=== PATIENT | male | born 1975 | race Two or more races ===

== ENCOUNTER 2020-05-25 20:49 | Emergency (ER) | payer BC, SELFPAY ==
--- NOTE | 2020-05-25 23:18 | ED.SKABFB ---
HPI - Skin/Abscess/Foreign Bdy General Chief complaint: Back Pain/Injury Stated complaint: lower back pain Time Seen by Provider: 05/25/20 23:57 Source: patient Mode of arrival: ambulatory Limitations: no limitations History of Present Illness HPI narrative: 44-year-old male with no significant past medical history presents with lower lumbar strain after moving heavy boxes. Does not report any symptoms indicating cauda equina, has no difficulty with sensation, and has full range of motion. Patient states the muscular strain is cramping and twisting and feels that it is similar to past muscular strains. He does not report fevers, chills, chest pain or pressure, palpitations, diaphoresis, abdominal pain, abdominal distention, dysuria, hematuria, bowel or bladder incontinence, loss of balance, or decreased sensation. Related Data Previous Rx's Medication Instructions Recorded cyclobenzaprine 10 mg PO TID PRN #20 tab 05/26/20 diazepam [Valium] 5 mg PO BEDTIME PRN #7 tab 05/26/20 Allergies Allergy/AdvReac Type Severity Reaction Status Date / Time penicillin V Allergy Unknown Unknown Verified 05/25/20 23:19 Penicillins [PENICILLINS] Allergy Unknown UNKNOWN Verified 05/25/20 23:19 Review of Systems Review of Systems: Constitutional: No Fever, No Chills ENT/Mouth: No Ear Pain, No Hoarseness, No sore throat Eyes: No Eye Pain, No Swelling, No Redness, No Foreign Body Cardiovascular: No Chest Pain, No SOB Respiratory: No Cough, No Dyspnea Gastrointestinal: No Nausea, No Vomiting, No Diarrhea, No abdominal Pain Genitourinary: No Dysuria, No Hematuria Musculoskeletal: positive lower back pain, No Myalgias, No Joint Swelling Skin: No Skin lacerations, No rash Neuro: No Weakness, No Numbness, No Paresthesias, No Loss of Consciousness, No Dizziness, No Headache Psych: No Anxiety/Panic, No Depression Heme/Lymph: no easy bruising, no Lymphadenopathy Endocrine: No Polyuria, No Polydipsia Yes all other systems are reviewed and are negative [facility] Past Medical History Attestation statement: The following information was validated with the patient. Medical History (Updated 05/26/20 @ 00:53 by Justyna Blanc NP) Back pain Surgical History Hx of cholecystectomy Social History Social History Smoking Status: Never smoker Use of substances other than those prescribed or required for medical reasons: No Advance Directives: No Physical Exam Vital Signs: Vital Signs: Last Vital Signs Temp 99.0 F 05/25/20 23:19 Pulse 91 05/25/20 23:19 Resp 17 05/25/20 23:19 BP 147/94 H 05/25/20 23:19 Pulse Ox 99 05/25/20 23:19 Body Mass Index 41.8 Appearance: Alert. Oriented X3. Moderate distress. Eyes: Pupils equal, round and reactive to light. EOMI, sclera nonicteric ENT: Pharynx normal. Neck: Normal inspection. Neck supple. CVS: Normal heart rate and rhythm. Pulses normal. Respiratory: No respiratory distress. Lung sounds clear to auscultation all lobes Abdomen: Soft and nontender. Skin: Skin warm and dry. Normal skin color. Normal skin turgor. Extremities: No vertebral tenderness noted to surgical, thoracic, or lumbar spine, pain noted bilaterally to lower lumbar musculature, moves all extremities against resistance, strength 5/5. Neuro: No motor deficit. No sensory deficit. Cranial nerves 2-12 intact, gait well balanced well coordinated although awkward secondary pain. Course Course Course Narrative: 44-year-old male presents with lower back pain after moving heavy boxes. Patient does not have vertebral tenderness or step-offs, does have full range of motion although painful, palpable muscle spasms noted to the lower back. He does not report any indication of cauda equina, has not lost continence of bowel or bladder. Plan of care is for muscle relaxer, Toradol, and Valium to help with reducing muscular spasms. Patient verbalized understanding of and agrees to plan of care discharge home. MDM - Skin/Abscess/Foreign Bdy MDM Narrative Medical decision making narrative: Muscular spasms and strain, lumbar strain Medical Records Attestation: I reviewed the patient's medical records. Lab Data Attestation: I reviewed the patient's lab results. Discharge Plan Discharge Clinical Impression: Lumbar radiculopathy Strain of lumbar region Qualifiers: Encounter type: initial encounter Qualified Code(s): S39.012A - Strain of muscle, fascia and tendon of lower back, initial encounter Patient Disposition: Home, Self-Care Instructions: Acute Low Back Pain (ED) Additional Instructions: You were evaluated for lower back strain. We provided you with a prescription for cyclobenzaprine and Valium. Do not drive operate machinery while taking these medications. These medications may delay reaction time, increased risk for falls and drowsiness. Do not drink alcohol with these medications. Thank you for choosing this emergency department for evaluation. Please follow-up with primary care physician as needed. Return to the emergency department for any new, concerning, or worsening symptoms. Prescriptions: New diazepam [Valium] 5 mg tablet 5 mg PO BEDTIME PRN (Reason: muscle spasm) Qty: 7 RF: 0 cyclobenzaprine 10 mg tablet 10 mg PO TID PRN (Reason: muscle spasm) Qty: 20 RF: 0 Stand Alone Forms: Work/School Release
[2020-05-25 23:19] VITALS: BP 147/94; PULSE 91; RESP 17; TEMP 37.2; O2SAT 99; BMI 41.8
[2020-05-26] MEDS: diazePAM 2 MG TABLET PO (00:13)
[2020-05-26] MEDS: Ketorolac Tromethamine 60 MG/2 ML VIAL IM (00:13)
[2020-05-26] MEDS: Lidocaine 4 % Patch ADH..PATCH 2 PATCH TRANSDERMA (00:13)
[2020-05-26 00:53] VITALS: BP 133/82; PULSE 88; RESP 16; O2SAT 97
== END 2020-05-26 01:00 | disposition home or self-care (01) ==
PROVIDERS: Emergency Provider Emergency Medicine Emergency Medical Services
DX: S39.012A Strain of muscle, fascia and tendon of lower back, initial encounter (principal); M54.16 Radiculopathy, lumbar region; X58.XXXA Exposure to other specified factors, initial encounter; Y93.9 Activity, unspecified; Y92.9 Unspecified place or not applicable; Y99.9 Unspecified external cause status; Z79.899 Other long term (current) drug therapy
CPT/HCPCS: 96372; 99284; J1885

== ENCOUNTER 2020-08-22 12:43 | Emergency (ER) | payer BC, MEDICAID, SELFPAY ==
--- NOTE | ~2020-08-22 | US_ITS ---
EXAMINATION: US SCROTUM CLINICAL INFORMATION: Pain, history of torsion. COMPARISON: None TECHNIQUE: A sonogram of the scrotum was performed assessing barrett-scale appearance and color Doppler flow. Spectral Doppler analysis of the arterial and venous flow were performed in the testes bilaterally. FINDINGS: RIGHT: Right testicle measures 4.3 x 2.3 x 3.1 cm, volume 16.8 mL. There is solitary cyst measuring 0.4 cm. No solid lesions seen. Spectral Doppler analysis of the arterial and venous flow is normal in the right testis. Right epididymal head is normal in size. No right hydrocele or varicocele is seen. Right epididymal Doppler flow is normal. LEFT: Left testicle measures 3.8 x 2.3 x 2.4 cm, volume 10.9 mL. There are several anechoic cysts seen measuring 0.3 x 0.2 cm, 0.3 x 0.3 cm and 0.2 x 0.2 cm. No solid parenchymal lesions are visualized. There is a nonspecific echogenic calcification. Spectral Doppler analysis of the arterial and venous flow is normal in the left testis. Incidental finding of a left appendix testes noted. Left epididymal head is normal in size. There is small to moderate left hydrocele. No Varicocele is seen. Left epididymal Doppler flow is normal except for slight increased flow in the tail likely epididymitis. US/US scrotum IMPRESSION: Bilateral epidural cyst more in number of the left testes. Normal Doppler flow seen to both testes. Left appendix testes and small left hydrocele. Slight increased flow to left epididymal tail question focal epididymitis.
--- NOTE | ~2020-08-22 | US_ITS ---
EXAMINATION: US SCROTUM CLINICAL INFORMATION: Pain, history of torsion. COMPARISON: None TECHNIQUE: A sonogram of the scrotum was performed assessing barrett-scale appearance and color Doppler flow. Spectral Doppler analysis of the arterial and venous flow were performed in the testes bilaterally. FINDINGS: RIGHT: Right testicle measures 4.3 x 2.3 x 3.1 cm, volume 16.8 mL. There is solitary cyst measuring 0.4 cm. No solid lesions seen. Spectral Doppler analysis of the arterial and venous flow is normal in the right testis. Right epididymal head is normal in size. No right hydrocele or varicocele is seen. Right epididymal Doppler flow is normal. LEFT: Left testicle measures 3.8 x 2.3 x 2.4 cm, volume 10.9 mL. There are several anechoic cysts seen measuring 0.3 x 0.2 cm, 0.3 x 0.3 cm and 0.2 x 0.2 cm. No solid parenchymal lesions are visualized. There is a nonspecific echogenic calcification. Spectral Doppler analysis of the arterial and venous flow is normal in the left testis. Incidental finding of a left appendix testes noted. Left epididymal head is normal in size. There is small to moderate left hydrocele. No Varicocele is seen. Left epididymal Doppler flow is normal except for slight increased flow in the tail likely epididymitis. US/US scrotum doppler IMPRESSION: Bilateral epidural cyst more in number of the left testes. Normal Doppler flow seen to both testes. Left appendix testes and small left hydrocele. Slight increased flow to left epididymal tail question focal epididymitis.
[2020-08-22 12:57] VITALS: BP 161/85; PULSE 70; RESP 18; TEMP 36.7; O2SAT 97; BMI 40.4
--- NOTE | 2020-08-22 13:13 | ED.GENADULT ---
HPI - General Adult General Chief complaint: General Medical Stated complaint: TESTICLE PAIN Time Seen by Provider: 08/22/20 13:09 Source: patient Mode of arrival: ambulatory Limitations: no limitations History of Present Illness HPI narrative: 45 y/o male with history of testicular torsion at age 17 presents to the ER from home c/o 24 hours of 8/10 testicular pain. He reports waking up with the pain yesterday. It feels like someone kicked him and the pain is not subsiding. No history of trauma, no sexual activity in 1 week. No urinary symptoms, fevers, N/V. He states the pain worsened today and he noticed his scrotum with a bluish discoloration. He reports the pain radiates up into his abdomen at times. He has not taken anything for the pain. It is worse on the right than the left but involves his entire scrotum. MD complaint: testicular pain Onset (ago): day(s) (1) Location: genitals Radiation: abdomen Severity: severe Severity scale (1-10): 8 Quality: aching Pain Consistency: constant Relieving factors: none Exacerbating factors: movement Associated symptoms: denies other symptoms Treatments prior to arrival: none Related Data Previous Rx's Medication Instructions Recorded cyclobenzaprine 10 mg PO TID PRN #20 tab 05/26/20 diazepam [Valium] 5 mg PO BEDTIME PRN #7 tab 05/26/20 hydrocodone-acetaminophen 1 tab PO Q6H PRN #7 tab 08/22/20 ibuprofen 800 mg PO Q8H PRN #15 tab 08/22/20 levofloxacin 500 mg PO Q24H 10 Days #10 tab 08/22/20 Allergies Allergy/AdvReac Type Severity Reaction Status Date / Time penicillin V Allergy Unknown Unknown Verified 05/25/20 23:19 Penicillins [PENICILLINS] Allergy Unknown UNKNOWN Verified 05/25/20 23:19 Review of Systems Review of Systems: Constitutional: No Fever, No Chills Eyes: No Eye Pain, No Swelling, No Redness Cardiovascular: No Chest Pain, No SOB, No Orthopnea, No Edema Respiratory: No Cough, No Sputum, No Wheezing, No dyspnea Gastrointestinal: No Nausea, No Vomiting, No Diarrhea, No abdominal Pain Genitourinary: No Dysuria, No Urinary Frequency, No Hematuria, +testicular pain Musculoskeletal: No joint pain, No Myalgias Skin: No Skin Lesions, No rash Neuro: No Weakness, No Numbness, No Dizziness, No Headache Psych: No Anxiety/Panic, No Depression Heme/Lymph: No Bruising, No Lymphadenopathy Endocrine: No Polyuria, No Polydipsia PMFSH Past Medical History Attestation statement: The following information was validated with the patient. Medical History Back pain Surgical History Hx of cholecystectomy Social History Social History Alcohol intake: current Alcohol intake frequency: a few times a month Patient Tobacco Use Status: Never used Tobacco Use of substances other than those prescribed or required for medical reasons: No Advance Directives: No Advance Directives Information Provided: No Physical Exam Vital Signs: Vital Signs: Last Vital Signs Temp 98.1 F 08/22/20 12:57 Pulse 61 08/22/20 14:17 Resp 16 08/22/20 14:17 BP 125/78 08/22/20 14:17 Pulse Ox 98 08/22/20 14:17 Body Mass Index 40.4 Appearance: Alert. Oriented X3. No acute distress. Eyes: Pupils equal, round and reactive to light. ENT: Pharynx normal. Neck: Normal inspection. Neck supple. CVS: Normal heart rate and rhythm. Pulses normal. Respiratory: No respiratory distress. Breath sounds normal. Abdomen: Obese, Soft and nontender. +BS x4 Genitalia: normal external inspection, diffuse tenderness to bilateral testicles, no skin changes, no palpable masses. Skin: Skin warm and dry. Normal skin color. Normal skin turgor. No rashes. Extremities: No lower extremity edema. Neuro: Oriented X 3. No motor deficit. No sensory deficit. Course Course Course Narrative: 45 y/o male presenting with testicular pain x24 hours. Hx testicular torsion as a teen. STAT U/S ordered. Reevaluation(s) Reevaluation #1: US showing epididymitis and cysts. will treat with PO abx and refer to urology. Discharge Plan Discharge Clinical Impression: Epididymitis Patient Disposition: Home, Self-Care Instructions: Epididymitis (ED) Additional Instructions: Your ultrasound showed epididymitis Take the prescribed antibiotics starting tomorrow, you were given 1st dose in the ER. Follow up with Urology. Take the medications as needed for pain. If you develop new or worsening symptoms call 911 or come back to the ER for further evaluation. Prescriptions: New levofloxacin 500 mg tablet 500 mg PO Q24H 10 Days Qty: 10 RF: 0 ibuprofen 800 mg tablet 800 mg PO Q8H PRN (Reason: pain) Qty: 15 RF: 0 hydrocodone-acetaminophen 5-325 mg tablet 1 tab PO Q6H PRN (Reason: pain) Qty: 7 RF: 0 No Action diazepam [Valium] 5 mg tablet 5 mg PO BEDTIME PRN (Reason: muscle spasm) Qty: 7 RF: 0 cyclobenzaprine 10 mg tablet 10 mg PO TID PRN (Reason: muscle spasm) Qty: 20 RF: 0 Referrals: Good Tobin MD [Physician] - 5 days
[2020-08-22] MEDS: HYDROcodone Bit/Acetam 5/325 TABLET 1 TAB PO (14:16)
[2020-08-22 14:17] VITALS: BP 125/78; PULSE 61; RESP 16; O2SAT 98
[2020-08-22 15:05] LABS: Glucose Urine UA NEG (NEG); Leukocyte Esterase Urine 3+ (NEG); Nitrite Urine NEG (NEG); UACC Culture Trigger YES; Urine Blood 2+ (NEG); Urine Ketones NEG (NEG); Urine Protein 2+ MG/DL (NEG-TRACE)
[2020-08-22 15:08] LABS: Appearance Urine CLOUDY; Color Urine YELLOW
[2020-08-22 15:15] VITALS: BP 107/69; PULSE 62; RESP 18; TEMP 36.7; O2SAT 96
[2020-08-22 15:25] LABS: Bacteria Urine 1+ /LPF; RBC Urine 0 /HPF (0); Squamous Epithelial Cell Urine TRACE /LPF; WBC Urine TNTC /HPF (0-4)
[2020-08-22] MEDS: Ibuprofen 600 MG TABLET PO (15:35)
[2020-08-22] MEDS: levoFLOXacin 750 MG TABLET PO (15:36)
[2020-08-23 02:51] LABS: CT PCR NOT DETECTED (Not Detect.); NG PCR NOT DETECTED (Not Detect.)
== END 2020-08-22 15:41 | disposition home or self-care (01) ==
PROVIDERS: Physician Assistant; Emergency Provider Emergency Medicine
DX: N45.1 Epididymitis (principal)
CPT/HCPCS: 76870; 81001; 81003; 87086; 87491; 87591; 93975; 99284

== ENCOUNTER 2021-01-19 10:37 | Emergency (ER) | payer MEDICAID, SELFPAY ==
--- NOTE | ~2021-01-19 | CT_ITS ---
EXAMINATION: CT ABDOMEN AND PELVIS WITH CONTRAST CLINICAL INFORMATION: Pain left upper quadrant, left lower quadrant, and left flank. COMPARISON: CT abdomen and pelvis noncontrast 12/27/2018. TECHNIQUE: Multidetector volumetric images were obtained from the superior aspect of the liver through the pubic symphysis following administration 85 mL of Omnipaque 350 intravenous contrast. Sagittal and coronal reformatted images were obtained on the technologist's workstation. Oral contrast: No This CT examination was performed using dose optimization techniques as appropriate, variously including the following: *Automated exposure control *Adjustment of mA and/or kV according to patient size (this includes techniques or standardized protocols for targeted exams where dose is matched to indication/reason for exam; i.e. extremities or head) *Use of iterative reconstruction technique DLP: 1097 mGy-cm FINDINGS: LUNG BASES: The visualized lung bases are unremarkable. LIVER, GALLBLADDER, AND BILIARY TREE: The liver is normal in size, shape, and attenuation. No focal hepatic lesion or biliary ductal dilatation is present. Prior cholecystectomy. Common duct unremarkable. PANCREAS: Unremarkable. SPLEEN: Unremarkable. ADRENAL GLANDS: Unremarkable. KIDNEYS AND URETERS: The kidneys enhance symmetrically. There is no hydronephrosis, hydroureter, calculi, or perinephric stranding. There is an incidental cyst posterior interpolar right kidney 1.4 cm and water attenuation, under 10 HU. There is a probable punctate cyst under 1 cm posterior interpolar left kidney too small to characterize with density measurements no additional imaging follow-up required. BLADDER: Unremarkable. GASTROINTESTINAL TRACT: No bowel obstruction or focal inflammatory changes in bowel or mesentery. Normal appendix. No pneumatosis or free air. No ascites or fluid collection. ABDOMINAL WALL: Small fat-containing umbilical hernia, under 3 cm. LYMPH NODES: No lymphadenopathy. VASCULAR: Unremarkable. PELVIC VISCERA: Unremarkable. OSSEOUS STRUCTURES: No acute bony abnormality. There are degenerative changes spine. CT/CT abdomen pelvis w con IMPRESSION: 1. No hydronephrosis, calculi, or perinephric stranding. 2. Prior cholecystectomy. No ductal dilatation. 3. No inflammatory changes in bowel or mesentery. Normal appendix. No ascites.
[2021-01-19 10:42] VITALS: BP 156/87; PULSE 101; RESP 20; TEMP 36.8; O2SAT 97; BMI 41.8
--- NOTE | 2021-01-19 11:51 | ECG_ITS ---
Test Reason : RADIATING CHEST PAIN Blood Pressure : / mmHG Vent. Rate : 078 BPM Atrial Rate : 078 BPM P-R Int : 148 ms QRS Dur : 094 ms QT Int : 392 ms P-R-T Axes : 059 012 039 degrees QTc Int : 446 ms Normal sinus rhythm Low voltage QRS Intra-ventricular conduction delay Borderline ECG When compared with ECG of 08-MAR-2016 11:33, Heart rate has decreased Referred By: Marichuy Dowling Electronically Signed By:BRYCE DOWLING MD
--- NOTE | 2021-01-19 11:53 | ED.ABDPAIN ---
HPI - Abdominal Pain General Chief Complaint: Abdominal Pain Stated Complaint: back pain radiating to lt abd Time Seen by Provider: 01/19/21 11:42 Source: patient Mode of arrival: ambulatory Limitations: no limitations History of Present Illness HPI narrative: Patient comes to the emergency room complaining of left abdominal plain and left flank pain. Patient states he has been having intermittent symptoms for approximately 1 month, initially it started in the left flank, now it is in the left side of the abdomen, both upper and lower but most prominent in the upper left quadrant. Patient had 1 episode of diarrhea today, no vomiting, no fever chills, no dysuria or hematuria. Patient denies any history of kidney stones. Patient denies dysuria, no chest pain, no shortness of breath. Related Data Previous Rx's Medication Instructions Recorded cyclobenzaprine 10 mg tablet 10 mg PO TID PRN #20 tab 05/26/20 diazepam 5 mg tablet (Valium) 5 mg PO BEDTIME PRN #7 tab 05/26/20 hydrocodone 5 mg-acetaminophen 325 1 tab PO Q6H PRN #7 tab 08/22/20 mg tablet ibuprofen 800 mg tablet 800 mg PO Q8H PRN #15 tab 08/22/20 levofloxacin 500 mg tablet 500 mg PO Q24H 10 Days #10 tab 08/22/20 dicyclomine 10 mg capsule 10 mg PO BID PRN #10 cap 01/19/21 ketorolac 10 mg tablet 10 mg PO TID PRN 5 Days tab 01/19/21 Allergies Allergy/AdvReac Type Severity Reaction Status Date / Time penicillin V Allergy Unknown Unknown Verified 05/25/20 23:19 Penicillins [PENICILLINS] Allergy Unknown UNKNOWN Verified 05/25/20 23:19 Review of Systems Review of Systems Constitutional : No Weight loss, No Fever, No Chills, No Night Sweats, No Fatigue, No Malaise ENT/Mouth : No Hearing loss, No Ear Pain, No Nasal Congestion, No Sinus Pain, No Hoarseness, No sore throat, No Rhinorrhea, No Swallowing Difficulty Eyes: No Eye Pain, No Swelling, No Redness, No Foreign Body, No Discharge, No Vision Changes Cardiovascular : No Chest Pain, No SOB, No Dyspnea on Exertion, No Orthopnea, No Edema, No Palpitations Respiratory : No Cough, No Sputum, No Wheezing, No Smoke Exposure, No Dyspnea Gastrointestinal : No Nausea, No Vomiting, complaining of 1 episode of Diarrhea, No Constipation, complaining of left upper and lower quadrant pain and left flank pain. Genitourinary : no irregular bleeding, No Dysuria, No Urinary Frequency, No Hematuria, No Urinary Incontinence, No Urgency, complaining of left Flank Pain, No Urinary Flow Changes, No Hesitancy Musculoskeletal : No joint pain, No Myalgias, No Joint Swelling Skin : No Skin Lesions, No rash Neuro : No Weakness, No Numbness, No Paresthesias, No Loss of Consciousness, No Dizziness, No Headache Psych : No Anxiety/Panic, No Depression, No SI/HI/AH/VH, No Social Issues, Heme/Lymph: No Bruising, No Bleeding,No Lymphadenopathy Endocrine : No Polyuria, No Polydipsia, No Temperature Intolerance Physical Exam Vital Signs: Vital Signs: Last Vital Signs Temp 98.2 F 01/19/21 10:42 Pulse 84 01/19/21 13:11 Resp 14 01/19/21 13:11 BP 129/79 01/19/21 13:11 Pulse Ox 100 01/19/21 13:11 Body Mass Index 41.8 Const: Other: Appearance: Alert. Oriented X3. No acute distress. Well-appearing Eyes: Pupils equal, round and reactive to light. ENT: Pharynx normal. Neck: Normal inspection. Neck supple. No lymph nodes noted. No crepitus CVS: Normal heart rate and rhythm. Pulses normal. Normal S1 and S2 Respiratory: No respiratory distress. Breath sounds normal. No Wheezing. No rales Abdomen: Soft , moderate tenderness to palpation in left upper and lower quadrant, positive CVA tenderness left side, no guarding, no rebound, No rigidity. No distention. Skin: Skin warm and dry. Normal skin color. Normal skin turgor. Extremities: No lower extremity edema. No Lacerations. No Rash Neuro: Oriented X 3. No motor deficit. No sensory deficit. Moving all extermities. No slurred speech. Course Course Course Narrative: I discussed the labs and imaging with the patient, acute findings. Patient's urinalysis shows microscopic hematuria, which patient has had in the past. Patient's abdominal pain likely secondary to viral syndrome. MDM - Abdominal Pain Lab Data Result diagrams: 01/19/21 12:19 01/19/21 12:19 Labs: Lab Results 01/19/21 01/19/21 01/19/21 Range/Units 12:19 12:19 12:19 WBC 9.4 (4.8-10.8) X10*3/uL RBC 5.59 (4.60-5.80) X10*6/uL Hgb 15.7 (14.0-18.0) g/dl Hct 45.9 (42.0-52.0) % MCV 82.1 (80.0-98.0) fL MCH 28.1 (27.0-33.0) pg MCHC 34.2 (31.0-36.0) g/dl RDW 13.6 (11.0-16.0) % Plt Count 359 (160-400) X10*3/uL MPV 9.1 L (9.4-12.4) fL Immature Gran % (Auto) 0.2 (0.0-0.4) % Neut % (Auto) 72.0 (45-73) % Lymph % (Auto) 16.5 L (20-40) % [place] % (Auto) 8.0 (2-11) % Eos % (Auto) 2.9 (0-4) % Baso % (Auto) 0.4 (0-2) % Lymph # (Auto) 1.5 (1.2-4.9) X10*3/uL [place] # (Auto) 0.8 (0.1-1.2) X10*3/uL Eos # (Auto) 0.3 (0.0-0.4) X10*3/uL Baso # (Auto) 0.0 (0.0-0.2) X10*3/uL Abs Immat Gran (auto) 0.02 (0.00-0.03) X10*3/uL Absolute Neuts (auto) 6.7 (2.0-8.3) x10*3/uL Absolute Nucleated RBC 0.000 (0.0-0.012) X10*3/uL Nucleated RBC % (auto) 0.0 (0.0-0.2) /100WBC Sodium 137 (135-145) mmol/L Potassium 3.7 (3.3-5.1) mmol/L Chloride 102 (96-108) mmol/L Carbon Dioxide 22 (22-29) mmol/L Anion Gap 17 (12-20) BUN 8 L (9-16) mg/dL Creatinine 1.20 (0.5-1.4) mg/dL Estim Creat Clear Calc 108.3 Estimated GFR > 60 Random Glucose 126 H (60-115) mg/dL Calcium 10.0 (8.4-10.2) mg/dL Total Bilirubin 1.1 H (0.0-1.0) mg/dL Direct Bilirubin 0.4 (0.0-0.5) mg/dL AST 29 (5-37) U/L ALT 38 (0-40) U/L Alkaline Phosphatase 83 (39-117) U/L Troponin I High Sens < 3.5 (<3.5-35.0) ng/L Total Protein 7.3 (6.5-8.0) g/dL Albumin 4.1 (3.5-5.0) g/dL Lipase 44 (8-78) U/L Urine Color Urine Appearance Urine pH (5.0-8.0) Ur Specific [place] (1.005-1.025) Urine Protein (NEG-TRACE) MG/DL Urine Glucose (UA) (NEG) MG/DL Urine Ketones (NEG) MG/DL Urine Blood (NEG) Urine Nitrite (NEG) Ur Leukocyte Esterase (NEG) 01/19/21 Range/Units 16:49 WBC (4.8-10.8) X10*3/uL RBC (4.60-5.80) X10*6/uL Hgb (14.0-18.0) g/dl Hct (42.0-52.0) % MCV (80.0-98.0) fL MCH (27.0-33.0) pg MCHC (31.0-36.0) g/dl RDW (11.0-16.0) % Plt Count (160-400) X10*3/uL MPV (9.4-12.4) fL Immature Gran % (Auto) (0.0-0.4) % Neut % (Auto) (45-73) % Lymph % (Auto) (20-40) % [place] % (Auto) (2-11) % Eos % (Auto) (0-4) % Baso % (Auto) (0-2) % Lymph # (Auto) (1.2-4.9) X10*3/uL [place] # (Auto) (0.1-1.2) X10*3/uL Eos # (Auto) (0.0-0.4) X10*3/uL Baso # (Auto) (0.0-0.2) X10*3/uL Abs Immat Gran (auto) (0.00-0.03) X10*3/uL Absolute Neuts (auto) (2.0-8.3) x10*3/uL Absolute Nucleated RBC (0.0-0.012) X10*3/uL Nucleated RBC % (auto) (0.0-0.2) /100WBC Sodium (135-145) mmol/L Potassium (3.3-5.1) mmol/L Chloride (96-108) mmol/L Carbon Dioxide (22-29) mmol/L Anion Gap (12-20) BUN (9-16) mg/dL Creatinine (0.5-1.4) mg/dL Estim Creat Clear Calc Estimated GFR Random Glucose (60-115) mg/dL Calcium (8.4-10.2) mg/dL Total Bilirubin (0.0-1.0) mg/dL Direct Bilirubin (0.0-0.5) mg/dL AST (5-37) U/L ALT (0-40) U/L Alkaline Phosphatase (39-117) U/L Troponin I High Sens (<3.5-35.0) ng/L Total Protein (6.5-8.0) g/dL Albumin (3.5-5.0) g/dL Lipase (8-78) U/L Urine Color YELLOW Urine Appearance CLEAR Urine pH 6.5 (5.0-8.0) Ur Specific [place] <= 1.005 (1.005-1.025) Urine Protein NEG (NEG-TRACE) MG/DL Urine Glucose (UA) NEG (NEG) MG/DL Urine Ketones NEG (NEG) MG/DL Urine Blood 1+ H (NEG) Urine Nitrite NEG (NEG) Ur Leukocyte Esterase NEG (NEG) Imaging Data CT scan - abdomen: Radiologist's impression: FINDINGS: LUNG BASES: The visualized lung bases are unremarkable.? LIVER, GALLBLADDER, AND BILIARY TREE: The liver is normal in size, shape, and attenuation. No focal hepatic lesion or biliary ductal dilatation is present. Prior cholecystectomy. Common duct unremarkable. ? PANCREAS: Unremarkable.? SPLEEN: Unremarkable.? ADRENAL GLANDS: Unremarkable.? KIDNEYS AND URETERS: The kidneys enhance symmetrically. There is no hydronephrosis, hydroureter, calculi, or perinephric stranding. There is an incidental cyst posterior interpolar right kidney 1.4 cm and water attenuation, under 10 HU. There is a probable punctate cyst under 1 cm posterior interpolar left kidney too small to characterize with density measurements no additional imaging follow-up required.? BLADDER: Unremarkable.? GASTROINTESTINAL TRACT: No bowel obstruction or focal inflammatory changes in bowel or mesentery. Normal appendix. No pneumatosis or free air. No ascites or fluid collection.? ABDOMINAL WALL: Small fat-containing umbilical hernia, under 3 cm.? LYMPH NODES: No lymphadenopathy. VASCULAR: Unremarkable. PELVIC VISCERA: Unremarkable.? OSSEOUS STRUCTURES: No acute bony abnormality. There are degenerative changes spine.? CT/CT abdomen pelvis w con IMPRESSION: ? 1. No hydronephrosis, calculi, or perinephric stranding. 2. Prior cholecystectomy. No ductal dilatation. 3. No inflammatory changes in bowel or mesentery. Normal appendix. No ascites.? ECG Data Attestation: I personally reviewed and interpreted this ECG as follows: (Normal sinus rhythm, heart rate 78, no ST segment depression elevation, no T-wave inversions, QTC 446) Discharge Plan Discharge Clinical Impression: Flank pain, Abdominal pain Patient Disposition: Home, Self-Care Instructions: Abdominal Pain (ED), Flank Pain (ED) Additional Instructions: Please follow-up with your primary care physician tomorrow. If you have any worsening or new symptoms, please return to the emergency room or call 911 Prescriptions: New ketorolac 10 mg tablet 10 mg PO TID PRN (Reason: pain) 5 Days RF: 0 dicyclomine 10 mg capsule 10 mg PO BID PRN (Reason: abdominal discomfort) Qty: 10 RF: 0 No Action diazepam [Valium] 5 mg tablet 5 mg PO BEDTIME PRN (Reason: muscle spasm) Qty: 7 RF: 0 cyclobenzaprine 10 mg tablet 10 mg PO TID PRN (Reason: muscle spasm) Qty: 20 RF: 0 levofloxacin 500 mg tablet 500 mg PO Q24H 10 Days Qty: 10 RF: 0 ibuprofen 800 mg tablet 800 mg PO Q8H PRN (Reason: pain) Qty: 15 RF: 0 hydrocodone-acetaminophen 5-325 mg tablet 1 tab PO Q6H PRN (Reason: pain) Qty: 7 RF: 0 PMFSH Past Medical History Medical History Back pain Surgical History Hx of cholecystectomy Social History Social History Alcohol intake: current Alcohol intake frequency: a few times a month Patient Tobacco Use Status: Never used Tobacco Advance Directives: No Advance Directives Information Provided: No
[2021-01-19 12:26] LABS: MANUAL DIFF FLAG NO
[2021-01-19] MEDS: Ketorolac Tromethamine 15 MG/ML VIAL 30 MG IVPUSH (12:28)
[2021-01-19] MEDS: 0.9 % Sodium Chloride 1,000 ML 999 ML IVCONT (12:28)
[2021-01-19] MEDS: ondansetron HCL 4 MG/2 ML VIAL IVPUSH (12:28)
[2021-01-19 12:39] LABS: Basophils Percent Auto 0.4 % (0-2); Eosinophils Absolute Auto 0.3 X10*3/uL (0.0-0.4); Eosinophils Percent Auto 2.9 % (0-4); Hematocrit 45.9 % (42.0-52.0); Hemoglobin 15.7 g/dl (14.0-18.0); Imm Gran Abs Auto 0.02 X10*3/uL (0.00-0.03); Imm Gran Pct Auto 0.2 % (0.0-0.4); Lymphocytes Absolute Auto 1.5 X10*3/uL (1.2-4.9); Lymphocytes Percent Auto 16.5 % (20-40); Mean Corpuscular HGB Conc 34.2 g/dl (31.0-36.0); Mean Corpuscular Hemoglobin 28.1 pg (27.0-33.0); Mean Corpuscular Volume 82.1 fL (80.0-98.0); Mean Platelet Volume 9.1 fL (9.4-12.4); Monocytes Absolute Auto 0.8 X10*3/uL (0.1-1.2); Neutrophils Absolute Auto 6.7 x10*3/uL (2.0-8.3); Platelet Count 359 X10*3/uL (160-400); Red Blood Count 5.59 X10*6/uL (4.60-5.80); Red Cell Distribution Width 13.6 % (11.0-16.0); White Blood Count 9.4 X10*3/uL (4.8-10.8)
[2021-01-19 13:00] LABS: Troponin-I High Sensitivity < 3.5 ng/L (<3.5-35.0)
[2021-01-19 13:02] LABS: Alanine Aminotransferase 38 U/L (0-40); Albumin Level 4.1 g/dL (3.5-5.0); Alkaline Phosphatase 83 U/L (39-117); Anion Gap 17 (12-20); Aspartate Amino Transferase 29 U/L (5-37); Bilirubin Direct 0.4 mg/dL (0.0-0.5); Bilirubin Total 1.1 mg/dL (0.0-1.0); Blood Urea Nitrogen 8 mg/dL (9-16); Carbon Dioxide 22 mmol/L (22-29); Chloride 102 mmol/L (96-108); Creatinine Clr Calc Pharmacy 108.3; Estimated Glomerular Filt Rate > 60; Glucose Random 126 mg/dL (60-115); Lipase 44 U/L (8-78); Potassium 3.7 mmol/L (3.3-5.1); Sodium 137 mmol/L (135-145); Total Protein 7.3 g/dL (6.5-8.0)
[2021-01-19 13:11] VITALS: BP 129/79; PULSE 84; RESP 14; O2SAT 100
[2021-01-19] MEDS: iohexoL 350 MG/ML 100 ML INFUS..BTL IV (14:54)
[2021-01-19 17:08] LABS: Appearance Urine CLEAR; Color Urine YELLOW; Glucose Urine UA NEG (NEG); Leukocyte Esterase Urine NEG (NEG); Nitrite Urine NEG (NEG); PH 6.5 (5.0-8.0); Specific Gravity - Urine <= 1.005 (1.005-1.025); UACC Culture Trigger NO; Urine Blood 1+ (NEG); Urine Ketones NEG (NEG); Urine Protein NEG (NEG-TRACE)
[2021-01-19 17:41] LABS: Bacteria Urine TRACE /LPF; RBC Urine 0-2 /HPF (0); Squamous Epithelial Cell Urine TRACE /LPF; WBC Urine 0 /HPF (0-4)
== END 2021-01-19 17:51 | disposition home or self-care (01) ==
PROVIDERS: Emergency Provider Emergency Medicine
DX: R10.9 Unspecified abdominal pain (principal); R31.29 Other microscopic hematuria
CPT/HCPCS: 36415; 74177; 80048; 80076; 81001; 83690; 84484; 85025; 93005; 96361; 96374; 96375; 99284; J1885; J2405; Q9967

== ENCOUNTER 2022-04-04 17:08 | Emergency (ER) | payer OTHER, SELFPAY ==
--- NOTE | ~2022-04-04 | CT_ITS ---
EXAMINATION: CT ABDOMEN AND PELVIS WITHOUT CONTRAST CLINICAL INFORMATION: Back flank pain. Microscopic hematuria. COMPARISON: Prior examinations including CT December 2020. TECHNIQUE: Multidetector volumetric imaging was performed from the superior aspect of the liver through the pubic symphysis. Sagittal and coronal reformatted images were obtained on the technologist's workstation. This CT examination was performed using dose optimization techniques as appropriate, variously including the following: *Automated exposure control *Adjustment of mA and/or kV according to patient size (this includes techniques or standardized protocols for targeted exams where dose is matched to indication/reason for exam; i.e. extremities or head) *Use of iterative reconstruction technique DLP: 1114 mGy-cm FINDINGS: LUNG BASES: The visualized lung bases are unremarkable. LIVER, GALLBLADDER, AND BILIARY TREE: The liver is normal in size, shape, and attenuation. No focal hepatic lesion or biliary ductal dilatation is present. Status post cholecystectomy unchanged. PANCREAS: Unremarkable. SPLEEN: Unremarkable. ADRENAL GLANDS: Unremarkable. KIDNEYS AND URETERS: Simple cyst in the posterior cortex of the mid to lower portion of the right kidney unchanged requiring no followup. No urinary tract calculi. BLADDER: Unremarkable. GASTROINTESTINAL TRACT: Appendix normal. Scattered diverticulosis without diverticulitis. Small bowel normal. Stomach normal. There is mild fairly subtle mesenteric edema not seen previously. ABDOMINAL WALL: No significant hernia is appreciated. LYMPH NODES: Normal. VASCULAR: Unremarkable. PELVIC VISCERA: Unremarkable. OSSEOUS STRUCTURES: Bridging osteophytes along the anterior aspect of the sacroiliac joints bilaterally. Multilevel spondylosis of the partially visualized dorsal and lumbosacral spine. CT/CT abdomen pelvis wo IV con IMPRESSION: 1. No urinary tract calculi. 2. Scattered diverticulosis without diverticulitis. 3. Status post cholecystectomy. 4. Mild mesenteric edema not seen previously. This is nonspecific and of uncertain clinical significance. This can be associated with mesenteric panniculitis in some patients. 5. Spondylosis of the partially visualized dorsal and lumbosacral spine. 6. Bridging osteophytes along the anterior aspect of the sacroiliac joints bilaterally. 7. Simple cyst right kidney unchanged requiring no follow-up. Fleischner guidelines were followed.
[2022-04-04 17:43] VITALS: BP 116/80; PULSE 80; RESP 20; TEMP 36.4; O2SAT 98; BMI 38.5
--- NOTE | 2022-04-04 17:43 | ED_ITS ---
HPI - Back Pain/Injury General Chief Complaint: Back Pain/Injury Stated Complaint: Flank pain Time Seen by Provider: 04/04/22 18:54 Source: patient Mode of arrival: ambulatory Limitations: no limitations History of Present Illness HPI Narrative: Patient is a 46 year old male presenting to ED for evaluation of mid lower back pain, radiating to both sides of lower back and partially to right lateral ABD, made worse with movement. feels fatigued. a few days ago had dysuria, single episode, non currently. He does report he has recently been going to the gym, past 2 weeks, not sure if he pulled something. Also reporting fatigue. Reports a history of disc herniation 15-20 years ago. Denies known recent precipitating injury, fevers, chills, burning with micturition, urinary frequency/urgency/hesitancy, bladder or bowel dysfunction, numbness or tingling of the perineum or bilateral legs. Denies any recent surg ical procedures, any known immune compromising conditions, personal history of cancer, or IV drug usage. MD elicited complaint: back pain Related Data Previous Rx's Medication Instructions Recorded cyclobenzaprine 10 mg tablet 10 mg PO TID PRN muscle spasm #20 05/26/20 tabs diazepam 5 mg tablet (Valium) 5 mg PO BEDTIME PRN muscle spasm 05/26/20 #7 tabs hydrocodone 5 mg-acetaminophen 325 1 tab PO Q6H PRN pain #7 tabs 08/22/20 mg tablet ibuprofen 800 mg tablet 800 mg PO Q8H PRN pain #15 tabs 08/22/20 levofloxacin 500 mg tablet 500 mg PO Q24H 10 days #10 tabs 08/22/20 dicyclomine 10 mg capsule 10 mg PO BID PRN abdominal 01/19/21 discomfort #10 caps ketorolac 10 mg tablet 10 mg PO TID PRN pain 5 days 01/19/21 cyclobenzaprine 10 mg tablet 10 mg PO TID PRN muscle spasm #20 04/04/22 tabs Allergies Allergy/AdvReac Type Severity Reaction Status Date / Time penicillin V Allergy Unknown Unknown Verified 05/25/20 23:19 Penicillins [PENICILLINS] Allergy Unknown UNKNOWN Verified 05/25/20 23:19 Review of Systems Review of Systems: Constitutional: No weight loss, fever, chills, weakness or fatigue. HEENT: No visual loss, blurred vision, double vision. No hearing loss, sneezing, congestion, runny nose or sore throat. Skin: No rash or itching. Cardiovascular: No chest pain, chest pressure or chest discomfort. No palpitations or pedal edema. Respiratory: No shortness of breath, cough or sputum production. Gastrointestinal: No anorexia, nausea, vomiting or diarrhea. No abdominal pain or blood in stool. Genitourinary: No burning micturition. No urinary frequency or incontinence. Neurologic: No headache, dizziness, syncope, unilateral weakness, ataxia, numbness or tingling in the extremities. No change in bowel or bladder control. Musculoskeletal: + Back pain as noted in HPI. No joint pain or stiffness. Hematologic: No bleeding or bruising. Lymphatics: No enlarged lymph nodes. Psychiatric:No depression or anxiety. Endocrine: No reports of sweating. No cold or heat intolerance. No polyuria or polydipsia. [facility] Past Medical History Attestation statement: The following information was validated with the patient. Source: old records reviewed Medical History Back pain Surgical History Hx of cholecystectomy Social History Social History Alcohol intake: current Alcohol intake frequency: a few times a month Patient Tobacco Use Status: Never used Tobacco Advance Directives: No Advance Directives Information Provided: No Physical Exam Vital Signs: Vital Signs: Last Vital Signs Temp 97.6 F 04/04/22 17:43 Pulse 80 04/04/22 17:43 Resp 20 04/04/22 17:43 BP 116/80 04/04/22 17:43 Pulse Ox 98 04/04/22 17:43 O2 Del Method 04/04/22 17:43 BMI result Body Mass Index 38.5 Appearance: Alert.?Oriented to person, place and time. No acute distress.?Normal affect. Eyes: Pupils equal, round and reactive to light.? ENT: Pharynx normal.?? Neck: Normal inspection.? Neck supple.?? CVS: Heart sounds normal. Normal heart rate and rhythm.? Pulses normal; bilateral radial pulses 2+, bilateral posterior tibial/dorsalis pedis pulses 2+.? Respiratory: No respiratory distress.? Lung sounds clear to auscultation bilaterally?? Abdomen: Soft and non-tender. Normoactive bowel sounds. No pulsatile mass.?? Skin: Skin warm and dry.? Normal skin color.? Normal skin turgor.?? Extremities: No lower extremity edema.? No calf ttp? Back: + mild paraspinal muscular tenderness from lumbar region to coccyx. Positive CVA tenderness. No midline spinal tenderness, step-off's, or deformity. Full ROM intact in bilateral lower extremities. Straight leg test negative on right; Straight leg test negative on left. No rashes, lesions, areas of induration or fluctuance, or signs of infection noted., Neuro: Moves all extremities spontaneously. 5/5 strength in hip extension/ flexion, abduction, adduction. Sensation to light touch intact bilaterally. Patellar and Achilles reflex 2+ bilaterally. No ataxia, gait normal and steady.. No focal neuro deficits. Course Reevaluation(s) Reevaluation #1: Urinalysis reveals trace microscopic hematuria, no evidence of infection. CT of the abdomen and pelvis without evidence of urinary tract calculi, diverticulosis without diverticulitis, spondylosis of the lumbar O2 sacral spine, bridging osteophytes of the SI joint bilaterally. Advised patient cannot completely exclude herniated disc. Patient to be discharged home, advised rest, ice/heat, gentle stretching exercises of the lower back, acetaminophen/ibuprofen, cyclobenzaprine as needed for pain, discussed worrisome signs and symptoms I would warrant re-evaluation in the emergency department, advised outpatient follow-up with primary care provider. All questions answered. Stable for discharge, ambulatory with a steady gait. Medications Administered Discontinued Medications Generic Name Dose Route Start Last Admin Trade Name Freq PRN Reason Stop Dose Admin Ketorolac Tromethamine 30 mg 04/04/22 18:54 04/04/22 18:59 Ketorolac Tromethamine 30 Mg/Ml Vial IM 04/04/22 18:55 30 mg ONCE ONE Administration Medical Decision Making Medical Decision Making [facility] Narrative: Patient is a 46-year-old male with no reported past medical history presenting to emergency department for evaluation of back pain as noted in HPI. Diffuse tenderness along palpation of the paraspinal muscles/flank bilaterally. Will obtain urinalysis, labs, trial ketorolac IM for pain. Musculoskeletal pain verses renal colic; ureteral calculi, obstructive stone, hydronephrosis, disc herniation. On neurological exam there are no deficits. Not consistent with spinal fracture, spinal infection, epidural abscess, AAA, or dissection. No high risk past medical history including incontinence, fever, immunosuppression, recent surgery or lumbar puncture, coagulopathy, significant trauma, recent unintentional weight loss, pulsatile mass, history of cancer, history of TB, history of IV drug use that would warrant MRI or CT. On exam no concern for cauda equina syndrome. No imaging is currently indicated at this time. Differential Diagnosis Differential Diagnoses: The differential diagnosis associated with the presentation includes (As noted above) Lab Data MDM Lab Attestation statement: I reviewed the patient's lab results. 04/04/22 19:05 04/04/22 19:05 Labs: Lab Results 04/04/22 04/04/22 04/04/22 Range/Units 18:42 19:05 19:05 WBC 10.4 (4.8-10.8) X10*3/uL RBC 5.50 (4.60-5.80) X10*6/uL Hgb 14.9 (14.0-18.0) g/dl Hct 45.5 (42.0-52.0) % MCV 82.7 (80.0-98.0) fL MCH 27.1 (27.0-33.0) pg MCHC 32.7 (31.0-36.0) g/dl RDW 13.9 (11.0-16.0) % Plt Count 333 (160-400) X10*3/uL MPV 9.1 L (9.4-12.4) fL Immature Gran % (Auto) 0.2 (0.0-0.4) % Neut % (Auto) 71.8 (45-73) % Lymph % (Auto) 19.5 L (20-40) % [place] % (Auto) 6.3 (2-11) % Eos % (Auto) 1.8 (0-4) % Baso % (Auto) 0.4 (0-2) % Lymph # (Auto) 2.0 (1.2-4.9) X10*3/uL [place] # (Auto) 0.7 (0.1-1.2) X10*3/uL Eos # (Auto) 0.2 (0.0-0.4) X10*3/uL Baso # (Auto) 0.0 (0.0-0.2) X10*3/uL Abs Immat Gran (auto) 0.02 (0.00-0.03) X10*3/uL Absolute Neuts (auto) 7.5 (2.0-8.3) x10*3/uL Absolute Nucleated RBC 0.000 (0.0-0.012) X10*3/uL Nucleated RBC % (auto) 0.0 (0.0-0.2) /100WBC Sodium 139 (135-145) mmol/L Potassium 3.9 (3.3-5.1) mmol/L Chloride 103 (96-108) mmol/L Carbon Dioxide 25 (22-29) mmol/L Anion Gap 15 (12-20) BUN 8 L (9-16) mg/dL Creatinine 0.98 (0.5-1.4) mg/dL Estim Creat Clear Calc 125.5 Estimated GFR > 60 Random Glucose 160 H (60-115) mg/dL Calcium 9.6 (8.4-10.2) mg/dL Total Bilirubin 1.2 H (0.0-1.0) mg/dL AST 25 (5-37) U/L ALT 31 (0-40) U/L Alkaline Phosphatase 79 (39-117) U/L Total Protein 6.7 (6.5-8.0) g/dL Albumin 4.0 (3.5-5.0) g/dL Urine Color Yellow Urine Appearance Clear Urine pH 6.0 (5.0-9.0) Ur Specific [place] 1.015 (1.005-1.025) Urine Protein Negative (Neg-Trace) mg/dL Urine Glucose (UA) Negative (Negative) mg/dL Urine Ketones Negative (Negative) mg/dL Urine Blood Trace H (Negative) Urine Nitrite Negative (Negative) Ur Leukocyte Esterase Trace H (Negative) Urine RBC 0-2 (0-2) /HPF Urine WBC 0-5 (0-5) /HPF Ur Squamous Epith Cells 0-2 (0-2) /HPF Urine Bacteria None Seen (None Seen) Hyaline Casts 0-2 (0-2) /LPF Independent Interpretation I performed an independent interpretation of an: CT Scan Radiology Impression Discussion of test interpretation with radiology: I have reviewed the radiologist's reading. Radiologist Impression: CT/CT abdomen pelvis wo IV con IMPRESSION: 1. No urinary tract calculi. ? 2. Scattered diverticulosis without diverticulitis. ? 3. Status post cholecystectomy. ? 4. Mild mesenteric edema not seen previously. This is nonspecific and of uncertain clinical significance. This can be associated with mesenteric panniculitis in some patients. ? 5. Spondylosis of the partially visualized dorsal and lumbosacral spine. ? 6. Bridging osteophytes along the anterior aspect of the sacroiliac joints bilaterally. ? 7. Simple cyst right kidney unchanged requiring no follow-up. ? Prescription Management I considered prescription management with: Pain Medication Discharge Plan Discharge Clinical Impression: Sacroiliac joint dysfunction Patient Disposition: Home, Self-Care Instructions: Acute Low Back Pain (ED), Sacroiliitis (ED) Additional Instructions: Your CT scan shows bone spurs of the SI joint, this is likely the source of your pain. It is most likely that your recent exercise has caused inflammation in the pain you are experiencing Please engage in gentle stretching/lower back exercises You can take ibuprofen 200 mg, 3 tablets (600mg) every 6-8 hours as needed for pain, in addition to Tylenol 500 mg, 2 tablets (1,000mg) every 4-6 hours as needed for pain, but not to exceed 3 doses daily (3,000mg).? A prescription for cyclobenzaprine, a muscle relaxer was sent to your pharmacy. This medication may make you drowsy, should not drive, drink alcohol, or operate machinery while taking this medication. Please contact your primary care provider to arrange for a follow-up visit for persistent symptoms. You may return back to emergency department any new or worsening symptoms or concerns. Prescriptions: New cyclobenzaprine 10 mg tablet 10 mg PO TID PRN (Reason: muscle spasm) Qty: 20 0RF No Action diazepam [Valium] 5 mg tablet 5 mg PO BEDTIME PRN (Reason: muscle spasm) Qty: 7 0RF cyclobenzaprine 10 mg tablet 10 mg PO TID PRN (Reason: muscle spasm) Qty: 20 0RF levofloxacin 500 mg tablet 500 mg PO Q24H 10 Days Qty: 10 0RF ibuprofen 800 mg tablet 800 mg PO Q8H PRN (Reason: pain) Qty: 15 0RF hydrocodone-acetaminophen 5-325 mg tablet 1 tab PO Q6H PRN (Reason: pain) Qty: 7 0RF ketorolac 10 mg tablet 10 mg PO TID PRN (Reason: pain) 5 Days 0RF dicyclomine 10 mg capsule 10 mg PO BID PRN (Reason: abdominal discomfort) Qty: 10 0RF Referrals: Physician,None [Primary Care Provider] -
[2022-04-04] MEDS: Ketorolac Tromethamine 30 MG/ML VIAL IM (18:59)
[2022-04-04 19:03] LABS: Appearance Urine Clear; Color Urine Yellow; Glucose Urine UA Negative (Negative); Leukocyte Esterase Urine Trace (Negative); Nitrite Urine Negative (Negative); Specific Gravity - Urine 1.015 (1.005-1.025); UMIC TRIGGER UACC YES; Urine Blood Trace (Negative); Urine Ketones Negative (Negative); Urine Protein Negative (Neg-Trace)
[2022-04-04 19:05] LABS: Bacteria Urine None Seen (None Seen); Hyaline Casts Urine 0-2 /LPF (0-2); RBC Urine 0-2 /HPF (0-2); Squamous Epithelial Cell Urine 0-2 /HPF (0-2); WBC Urine 0-5 /HPF (0-5)
[2022-04-04 19:10] LABS: MANUAL DIFF FLAG NO
[2022-04-04 19:13] LABS: Basophils Percent Auto 0.4 % (0-2); Eosinophils Absolute Auto 0.2 X10*3/uL (0.0-0.4); Eosinophils Percent Auto 1.8 % (0-4); Hematocrit 45.5 % (42.0-52.0); Hemoglobin 14.9 g/dl (14.0-18.0); Imm Gran Abs Auto 0.02 X10*3/uL (0.00-0.03); Imm Gran Pct Auto 0.2 % (0.0-0.4); Lymphocytes Percent Auto 19.5 % (20-40); Mean Corpuscular HGB Conc 32.7 g/dl (31.0-36.0); Mean Corpuscular Hemoglobin 27.1 pg (27.0-33.0); Mean Corpuscular Volume 82.7 fL (80.0-98.0); Mean Platelet Volume 9.1 fL (9.4-12.4); Monocytes Absolute Auto 0.7 X10*3/uL (0.1-1.2); Monocytes Percent Auto 6.3 % (2-11); Neutrophils Absolute Auto 7.5 x10*3/uL (2.0-8.3); Neutrophils Percent Auto 71.8 % (45-73); Platelet Count 333 X10*3/uL (160-400); Red Cell Distribution Width 13.9 % (11.0-16.0); White Blood Count 10.4 X10*3/uL (4.8-10.8)
[2022-04-04 19:26] LABS: Alanine Aminotransferase 31 U/L (0-40); Alkaline Phosphatase 79 U/L (39-117); Anion Gap 15 (12-20); Aspartate Amino Transferase 25 U/L (5-37); Bilirubin Total 1.2 mg/dL (0.0-1.0); Blood Urea Nitrogen 8 mg/dL (9-16); Calcium 9.6 mg/dL (8.4-10.2); Carbon Dioxide 25 mmol/L (22-29); Chloride 103 mmol/L (96-108); Creatinine Clr Calc Pharmacy 125.5; Estimated Glomerular Filt Rate > 60; Glucose Random 160 mg/dL (60-115); Potassium 3.9 mmol/L (3.3-5.1); Sodium 139 mmol/L (135-145); Total Protein 6.7 g/dL (6.5-8.0)
== END 2022-04-04 21:15 | disposition home or self-care (01) ==
PROVIDERS: Nurse Practitioner Family; Emergency Provider Emergency Medicine Emergency Medical Services
DX: M54.50 Low back pain, unspecified (principal); R10.2 Pelvic and perineal pain; Z79.899 Other long term (current) drug therapy
CPT/HCPCS: 36415; 74176; 80053; 81001; 81003; 85025; 96372; 99283; 99284; J1885

== ENCOUNTER 2022-05-08 10:01 | Outpatient (REF) | payer OTHER, SELFPAY ==
[2022-05-08 11:41] LABS: Cholesterol 160 mg/dL; HDL Cholesterol 44 mg/dL; LDL Cholesterol Calculated 93 mg/dl; Triglycerides 116 mg/dL
[2022-05-08 12:07] LABS: TSH reflex Free T4 2.09 uIU/mL (0.32-4.0)
== END 2022-05-08 10:02 | disposition home or self-care (01) ==
LOC: HO.LAB 10:01
PROVIDERS: PCP Internal Medicine; Visit Provider Nurse Practitioner Family
DX: Z13.220 Encounter for screening for lipoid disorders (principal); Z13.29 Encounter for screening for other suspected endocrine disorder
CPT/HCPCS: 36415; 80061; 84443

== ENCOUNTER 2022-08-23 21:11 | Emergency (ER) | payer OTHER, SELFPAY ==
--- NOTE | ~2022-08-23 | XR_ITS ---
EXAMINATION: Left elbow, left wrist and left humerus. CLINICAL INDICATION: Exam pain. COMPARISON: None. TECHNIQUE: Left elbow 3 views. Left wrist 4 views and left humerus 2 views. FINDINGS: Left humerus: There is mild enthesophyte along the greater tuberosity. The glenohumeral joint and AC joint is maintained normal. The left humerus is intact without fracture or dislocation. Partially visualized left elbow joint is unremarkable. Left elbow: There are medial and lateral epicondylar enthesophytes. A large enthesophyte is seen along the olecranon process without any soft tissue swelling. There is no joint effusion seen. The soft tissues are normal. Left wrist: There is no visible acute fracture, dislocation or subluxation seen. The soft tissues are normal. XR/XR humerus LT IMPRESSION: 1. Large enthesophyte along the olecranon process and medial and lateral epicondylar enthesophytes. . 2. There is no visible acute fracture or dislocation left elbow. The soft tissues are normal. . 3. Unremarkable left humerus except for a small enthesophyte along the greater tuberosity. 4. Unremarkable left wrist and hand.
--- NOTE | ~2022-08-23 | XR_ITS ---
EXAMINATION: Left elbow, left wrist and left humerus. CLINICAL INDICATION: Exam pain. COMPARISON: None. TECHNIQUE: Left elbow 3 views. Left wrist 4 views and left humerus 2 views. FINDINGS: Left humerus: There is mild enthesophyte along the greater tuberosity. The glenohumeral joint and AC joint is maintained normal. The left humerus is intact without fracture or dislocation. Partially visualized left elbow joint is unremarkable. Left elbow: There are medial and lateral epicondylar enthesophytes. A large enthesophyte is seen along the olecranon process without any soft tissue swelling. There is no joint effusion seen. The soft tissues are normal. Left wrist: There is no visible acute fracture, dislocation or subluxation seen. The soft tissues are normal. XR/XR wrist LT 2V IMPRESSION: 1. Large enthesophyte along the olecranon process and medial and lateral epicondylar enthesophytes. . 2. There is no visible acute fracture or dislocation left elbow. The soft tissues are normal. . 3. Unremarkable left humerus except for a small enthesophyte along the greater tuberosity. 4. Unremarkable left wrist and hand.
--- NOTE | ~2022-08-23 | XR_ITS ---
EXAMINATION: Left elbow, left wrist and left humerus. CLINICAL INDICATION: Exam pain. COMPARISON: None. TECHNIQUE: Left elbow 3 views. Left wrist 4 views and left humerus 2 views. FINDINGS: Left humerus: There is mild enthesophyte along the greater tuberosity. The glenohumeral joint and AC joint is maintained normal. The left humerus is intact without fracture or dislocation. Partially visualized left elbow joint is unremarkable. Left elbow: There are medial and lateral epicondylar enthesophytes. A large enthesophyte is seen along the olecranon process without any soft tissue swelling. There is no joint effusion seen. The soft tissues are normal. Left wrist: There is no visible acute fracture, dislocation or subluxation seen. The soft tissues are normal. XR/XR elbow LT 2V IMPRESSION: 1. Large enthesophyte along the olecranon process and medial and lateral epicondylar enthesophytes. . 2. There is no visible acute fracture or dislocation left elbow. The soft tissues are normal. . 3. Unremarkable left humerus except for a small enthesophyte along the greater tuberosity. 4. Unremarkable left wrist and hand.
[2022-08-23 21:13] VITALS: BP 158/109; PULSE 89; RESP 18; TEMP 36.6; O2SAT 97; BMI 38.8
--- NOTE | 2022-08-23 22:37 | MHC.EDTECH ---
Brought patient a pillow to help rest his injured arm (Lt).
--- NOTE | 2022-08-23 22:49 | PC.NURSE ---
Pt here for left arm pain that radiates down his arm. Pt rates the pain a 10/10 pain that is throbbing in nature. Pt denies any injury to arm or extreme heavy lefting. Pt states he has had this pain before but this time the pain is unbearable to bear. Pt denies any CP, SOB, feeling of faint, numbness/tingling to extremities, N/v or any generalize weakness. Pt is awaiting MD morrison.
--- NOTE | 2022-08-23 22:55 | ED.EXTPRO ---
HPI - Extremity Problem General Chief complaint: Extremity Problem Stated complaint: Left arm locked/pain Time Seen by Provider: 08/23/22 22:53 Source: patient Mode of arrival: ambulatory Limitations: no limitations History of Present Illness HPI Narrative: 39-year-old male who presents emergency department for evaluation of left upper extremity pain x3 days. The patient states the pain started in his elbow, came on gradually and is got progressively worse. He states the pain is not radiating to his left shoulder and left wrist. He denies any injury. He states that with any movement of his left elbow the pain is severe and he feels like someone is twisting his arm behind his back. The patient states he has had similar pain in the past. He states that he was younger his elbow got bent backwards but he did not break his elbow. The patient denied systemic symptoms such as fever, chills, rhinorrhea, sore throat, cough, nausea, vomiting, diarrhea. He took cyclobenzaprine without any relief his pain. He did not take any other medications. States that his pain is greater than 10/10. Related Data Previous Rx's Medication Instructions Recorded cyclobenzaprine 10 mg tablet 10 mg PO TID PRN muscle spasm #20 04/04/22 tabs prednisone 20 mg tablet 60 mg PO DAILY 5 days #15 tabs 08/23/22 Allergies Allergy/AdvReac Type Severity Reaction Status Date / Time penicillin V Allergy Unknown Unknown Verified 08/10/22 09:45 Penicillins [PENICILLINS] Allergy Unknown UNKNOWN Verified 08/10/22 09:45 Review of Systems Review of Systems: Yes all other systems are reviewed and are negative [facility] Past Medical History [facility] Narrative: Social history: The patient does vape nicotine products. He occasionally drinks alcohol. He smokes marijuana. He denied injection drug use. 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 Surgical History Hx of cholecystectomy Hx of tonsillectomy Family History Family History Brother Mental health disorder Mother Colon cancer Father HTN (hypertension) History of open heart surgery Social History Social History (Updated 08/10/22 @ 09:56 by ZACK Maya) Housing: House Alcohol intake: never Patient Tobacco Use Status: Never used Tobacco Smoked in Last 30 Days: No e-Cigarette/Vaping Use: Currently Using Use of substances other than those prescribed or required for medical reasons: No Substance Use Type: Crack/Cocaine and Marijuana Last Used Substance: Days (ago) Any prior treatment program specific to substance use: No Advance Directives: No Advance Directives Information Provided: No service: No Current occupational status: employed Physical Exam Vital Signs: Vital Signs: Last Vital Signs Temp 97.8 F 08/23/22 21:13 Pulse 89 08/23/22 21:13 Resp 18 08/23/22 21:13 BP 158/109 H 08/23/22 21:13 Pulse Ox 97 08/23/22 21:13 O2 Del Method Room Air 08/23/22 22:00 BMI result Body Mass Index 38.8 Patient's blood pressure is elevated at 150 8/109, this is most likely secondary to his pain General: Pleasant, cooperative, male patient, does not appear to be in distress Left upper extremity evaluation: Patient has no increased warmth over his hands, wrist, elbow or shoulder joints. Patient has no limited range of motion to the fingers hands or shoulder. Patient has severe pain with minimal active and minimal passive range of motion of the elbow. Patient's extremities neurovascular intact. Skin: No increased warmth or erythema noted to the left upper extremity Medical Decision Making Medical Decision Making MDM Narrative: 47-year-old male who presents emergency department for evaluation of gradual onset of pain in his left elbow which is not radiating to his left wrist and hand and left shoulder. Patient states that he had an injury to his left elbow when he was younger but did not sustain a fracture. States he has had similar presentations with severe pain in his elbow in the past. Patient had no concerning systemic symptoms. He denies using injection drugs. Examination did reveal limited active and passive range of motion of his left elbow secondary to pain. There is no increased warmth or obvious joint effusion to the left elbow. There is no skin changes to suggest cellulitis or other infectious process. X-rays revealed bone spurs in osteoarthritis to the left elbow with no other acute findings. Patient most likely has osteoarthritis with inflammatory process causing his pain Patient was given prednisone 60 mg orally, Tylenol 975 mg orally and morphine 15 mg orally for his pain emergency department. He was prescribed prednisone 60 mg daily for 5 days and advised take Tylenol 1st pain. He was also given a sling to help rest the elbow joint and help reduce his pain. Was given printed and verbal instructions discharged home. Differential Diagnosis Differential Diagnoses: The differential diagnosis associated with the presentation includes Differential diagnosis includes but is not limited to osteoarthritis, inflammatory arthritis, gout, septic arthritis, necrotizing fasciitis Admission/Observation Consideration of admission/observation: Escalation of care including admission/observation considered Independent Interpretation I performed an independent interpretation of an: Plain X-Ray Interpretation: My independent interpretation of the patient's left hand, wrist, elbow and humerus x-rays are as follows: No acute fractures found. Patient does have arthritic changes of the left elbow with bone spurs Radiology Impression Discussion of test interpretation with radiology: I have reviewed the radiologist's reading. Radiologist Impression: Left elbow 3 views. Left wrist 4 views and left humerus 2 views. IMPRESSION: 1. Large enthesophyte along the olecranon process and medial and lateral epicondylar enthesophytes. . 2. There is no visible acute fracture or dislocation left elbow. The soft tissues are normal. . 3. Unremarkable left humerus except for a small enthesophyte along the greater tuberosity. 4. Unremarkable left wrist and hand. Dictated By:Leonard Acosta MD Prescription Management I considered prescription management with: Pain Medication Discharge Plan Discharge Clinical Impression: Left elbow pain, Inflammatory arthritis Osteoarthritis of left elbow Qualifiers: Osteoarthritis type: unspecified Qualified Code(s): M19.022 - Primary osteoarthritis, left elbow Patient Disposition: Home, Self-Care Instructions: Osteoarthritis (ED) Additional Instructions: The x-ray of your left wrist and humerus were normal. The x-ray of your left elbow is consistent with degenerative arthritis and bone spurs (osteoarthritis) Based on your exam, suspect that you have increased inflammation in your left elbow which is causing the pain. Take prednisone 20 mg pills, 3 pills once a day for 5 days. This is a strong anti-inflammatory pain medication. While you are taking prednisone, do not take any NSAIDs (Motrin, Advil, ibuprofen, Aleve, naproxen). Take Tylenol (acetaminophen) 500 mg pills, 2 pills every 4 to 6 hours as needed for pain. Wear the sling for 3-4 days. The sling will help rest your elbow joint. Once the pain is better you can stop wearing the sling. Follow-up with your doctor in 2 days. Please return to the emergency department if your symptoms get worse or if you develop any symptoms that are concerning to you. Prescriptions: New prednisone 20 mg tablet 60 mg PO DAILY 5 Days Qty: 15 0RF No Action cyclobenzaprine 10 mg tablet 10 mg PO TID PRN (Reason: muscle spasm) Qty: 20 0RF
[2022-08-23] MEDS: Acetaminophen 325 MG TABLET 975 MG PO (23:26)
[2022-08-23] MEDS: Morphine Sulfate Immed Release 15 MG TABLET PO (23:27)
[2022-08-23] MEDS: predniSONE 20 MG TABLET 60 MG PO (23:27)
== END 2022-08-24 00:06 | disposition home or self-care (01) ==
PROVIDERS: Emergency Provider Emergency Medicine Emergency Medical Services
DX: M19.022 Primary osteoarthritis, left elbow (principal); M25.522 Pain in left elbow; M79.602 Pain in left arm; F17.290 Nicotine dependence, other tobacco product, uncomplicated; Z79.899 Other long term (current) drug therapy
CPT/HCPCS: 73060; 73070; 73100; 99283; 99284

== ENCOUNTER 2022-10-25 11:32 | Outpatient (AMB) | payer OTHER, SELFPAY ==
--- NOTE | 2022-10-25 10:33 | A.OFFVIS_ITS ---
Intake Vital Signs 10/25/22 11:38 Height 5 ft 11 in Weight 279 lb BMI 38.9 BP 143/79 H Blood Pressure Location Lt brachial Position Sitting Pulse 70 Intake Visit Reasons: Colonoscopy Screening Intake Note: New consult for 1st pre colonoscopy screening. Patient cc: acid reflex on and off at night time, denies any GI issues. Manager Grant Required: No Accompanied by: Self / Same As Patient Allergies penicillin V Allergy (Unknown, Verified 10/25/22 11:34) Unknown Penicillins [PENICILLINS] Allergy (Unknown, Verified 10/25/22 11:34) UNKNOWN HPI HPI Comments History of Present Illness Details A 47-year-old male referred for screening colonoscopy-he admits the older gets he is getting anxious about his own health though he has no symptoms of anything Mom at 47 colon cancer- Bowels normal good appetite No medications- No N/v/D abdominal pain, hematemesis, hematochezia fever chills PFSH 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 Surgical History Hx of cholecystectomy Hx of tonsillectomy Family History Brother Mental health disorder Mother Colon cancer Father HTN (hypertension) History of open heart surgery Social History (Updated 10/25/22 @ 11:54 by Farzana Stallings PA-C) Housing: House Alcohol intake: never Patient Tobacco Use Status: Never used Tobacco e-Cigarette/Vaping Use: Currently Using Substance Use Type: Crack/Cocaine and Marijuana service: No Current occupational status: employed 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 Review of Systems Const All systems reviewed & are unremarkable except as noted in HPI and below Card Denies chest pain and Denies dyspnea Resp Denies dyspnea Psych Reports anxiety Physical Exam Vital Signs: Last Vital Signs Pulse 70 10/25/22 11:38 BP 143/79 H 10/25/22 11:38 BMI result Body Mass Index 38.9 Const General: cooperative, healthy appearing, comfortable and no acute distress Nutritional Appearance: overweight Orientation/consciousness: patient oriented x3 Limitations: no limitations Eyes Conjunctivae: conjunctivae normal Resp Effort & Inspection: normal respiratory effort and able to speak in complete sentences Auscultation: clear to auscultation bilaterally, no rales, no rhonchi and no wheezes Cardio Rate: regular rate Rhythm: regular rhythm Heart sounds: S1 normal heart sound present and S2 normal heart sound present GI Palpation (GI): Soft to palpation and nontender Auscultation: normal bowel sounds Neuro General: patient oriented x3 Extrem General: Yes full ROM Psych Appearance: well kempt Mental Status: mental status grossly normal Speech and movement: Normal speech and movement present and Clear speech present Affect: Anxious affect present Attitude: cooperative Thought process: Normal thought process present Thought content: Normal thought content present Insight: Good insight present (Psych) Judgement: Good judgement present (Psych) Results Reviewed Results Reviewed: CT/CT abdomen pelvis wo IV con IMPRESSION: 1. No urinary tract calculi. ? 2. Scattered diverticulosis without diverticulitis. ? 3. Status post cholecystectomy. ? 4. Mild mesenteric edema not seen previously. This is nonspecific and of uncertain clinical significance. This can be associated with mesenteric panniculitis in some patients. ? 5. Spondylosis of the partially visualized dorsal and lumbosacral spine. ? 6. Bridging osteophytes along the anterior aspect of the sacroiliac joints bilaterally. ? 7. Simple cyst right kidney unchanged requiring no follow-up. ? ? Fleischner guidelines were followed. Assessment & Plan Assessment & Plan (1) Encounter for screening colonoscopy: Comment: Index screening, no GI complaints Code(s): Z12.11 - Encounter for screening for malignant neoplasm of colon (2) Family history of malignant neoplasm of colon in relative diagnosed when younger than 50 years of age: Code(s): Z80.0 - Family history of malignant neoplasm of digestive organs Plan: Colonoscopy Plan index colonoscopy Orders: Orders Colonoscopy - GI Use Only Today Z12.11 - Encounter for screening for malignant neoplasm of colon Medications: New bisacodyl (Dulcolax (bisacodyl)) Take 4 tablets by mouth at 12:00pm the day before your procedure. 20 mg (4 x 5 mg) PO ONCE 1 day 4 tabs 0RF colonoscopy prep Z12.11 - Encounter for screening for malignant neoplasm of colon polyethylene glycol 3350 (Miralax) Take as directed by mouth the day before your procedure. 238 grams PO ONCE 1 day PRN 238 grams 0RF laxative effect Patient Instructions: Index screening colonoscopy Discussed procedure, rare risk need for escorted due to anesthesia and MiraLax Gatorade prep Encouraged to call questions or concerns Reinforced importance of follow Appreciate the opportunity assist in the care the patient Coding Level of Care Code New Pt Level 3 (35303) Diagnoses Encounter for screening colonoscopy Z12.11 Family history of malignant neoplasm of colon in relative diagnosed when younger than 50 years of age Z80.0 Time Spent (min) 30
[2022-10-25 11:38] VITALS: BP 143/79; PULSE 70; BMI 38.9
== END 2022-10-25 13:27 | disposition home or self-care (01) ==
PROVIDERS: Visit Provider Physician Assistant
DX: Z12.11 Encounter for screening for malignant neoplasm of colon (principal); Z80.0 Family history of malignant neoplasm of digestive organs; Z01.818 Encounter for other preprocedural examination
CPT/HCPCS: 99203

== ENCOUNTER → 2022-10-25 11:32 | Outpatient (BNVA) | payer OTHER, SELFPAY | PROVIDERS: Visit Provider Physician Assistant | DX: Z01.818 Encounter for other preprocedural examination (principal); Z80.0 Family history of malignant neoplasm of digestive organs | CPT/HCPCS: 99202 ==

== ENCOUNTER 2022-11-06 18:16 | Emergency (ER) | payer OTHER, SELFPAY ==
--- NOTE | ~2022-11-06 | XR_ITS ---
EXAMINATION: CHEST 2 VIEWS CLINICAL INFORMATION: sob. COMPARISON: 03/08/2016. TECHNIQUE: PA and lateral views of the chest obtained. FINDINGS: The lungs are well expanded. No focal infiltrate, effusion, edema, or pneumothorax. Cardiac and mediastinal silhouettes are within normal limits for technique. No acute bony abnormality seen with degenerative changes seen in the spine and shoulders XR/XR chest 2V IMPRESSION: No evidence of acute disease
--- NOTE | 2022-11-06 19:38 | ED_ITS ---
HPI - SOB/Dyspnea General Chief Complaint: Chest Pain Stated Complaint: sob,states body tingling Time Seen by Provider: 11/06/22 22:21 Source: patient Mode of arrival: ambulatory Limitations: no limitations History of Present Illness HPI Narrative: Patient's history of cocaine use anxiety stressed out lately as he found his is cheating on him comes here for chest pain over last few days with increased anxiety and poor sleep use his body tingling unable to sleep well Related Data Previous Rx's Medication Instructions Recorded bisacodyl 5 mg tablet,delayed 20 mg (4 x 5 mg) PO ONCE 10/25/22 release (Dulcolax (bisacodyl)) colonoscopy prep 1 day #4 tabs polyethylene glycol 3350 17 238 g PO ONCE PRN laxative effect 10/25/22 gram/dose oral powder (Miralax) 1 day #238 grams lorazepam 1 mg tablet (Ativan) 1 mg PO BID PRN anxiety/sleep #14 11/06/22 tabs Allergies Allergy/AdvReac Type Severity Reaction Status Date / Time penicillin V Allergy Unknown Unknown Verified 10/25/22 11:34 Penicillins [PENICILLINS] Allergy Unknown UNKNOWN Verified 10/25/22 11:34 Review of Systems 2 Review of Systems: Yes all other systems are reviewed and are negative [facility] Past Medical History 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 Surgical History Hx of cholecystectomy Hx of tonsillectomy Family History Family History Brother Mental health disorder Mother Colon cancer Father HTN (hypertension) History of open heart surgery Social History Social History (Updated 10/25/22 @ 11:54 by Farzana Stallings PA-C) Housing: House Alcohol intake: never Patient Tobacco Use Status: Never used Tobacco Smoked in Last 30 Days: Yes e-Cigarette/Vaping Use: Currently Using Use of substances other than those prescribed or required for medical reasons: Yes Substance Use Type: Crack/Cocaine and Marijuana Advance Directives: No Advance Directives Information Provided: Yes service: No 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 Oriented X3. No acute distress. Eyes: PERRLA, No Nystagmus ENT: Pharynx normal. Oral Mucosa moist Neck: Normal inspection. Neck supple. CVS: Normal heart rate and rhythm. Pulses normal. Respiratory: No respiratory distress. Equal air entry bilateral, no wheezing/rales/rhonchi Abdomen: Soft and nontender. Bowel sounds are present, no mass palpable, no CVA tenderness Skin: Skin warm and dry. Normal skin color. Normal skin turgor. Extremities: No lower extremity edema. No calf tenderness Neuro: Oriented X 3. No motor deficit. No sensory deficit.No cerebellar signs , cranial nerves II-XII intact Course Course Course Narrative: RME - 47 yo male with history of polysubstance abuse, palpitations, obesity who presents to the ER for evaluation of chest thud yesterday associated with all over tingling and SOB. He feels very SOB and anxious. He states his partner of years is cheating on him. Similar symptoms in the past with anxiety. +ETOH use since finding out about the cheating, not sleeping Plan: EKG, SOB, labs, treat anxiety Medications Administered Discontinued Medications Generic Name Dose Route Start Last Admin Trade Name Pepe PRN Reason Stop Dose Admin Lorazepam 2 mg 11/06/22 22:42 11/06/22 22:54 Lorazepam 1 Mg Tablet PO 11/06/22 22:43 2 mg ONCE ONE Administration Medical Decision Making Medical Decision Making [facility] Narrative: Patient with atypical chest pain for more than few days with increased anxiety substance abuse without any ischemic changes cardiac enzymes are negative pain is atypical likely from anxiety discharge patient now advised take medicine to relax and follow-up PCP Lab Data [facility] Lab Attestation statement: I reviewed the patient's lab results. 11/06/22 20:02 11/06/22 20:02 Labs: Lab Results 11/06/22 11/06/22 Range/Units 19:59 20:02 WBC 10.7 (4.8-10.8) X10*3/uL RBC 6.41 H (4.60-5.80) X10*6/uL Hgb 18.2 H D (14.0-18.0) g/dl Hct 53.1 H (42.0-52.0) % MCV 82.8 (80.0-98.0) fL MCH 28.4 (27.0-33.0) pg MCHC 34.3 (31.0-36.0) g/dl RDW 14.5 (11.0-16.0) % Plt Count 407 H (160-400) X10*3/uL MPV 8.7 L (9.4-12.4) fL Immature Gran % (Auto) 0.2 (0.0-0.4) % Neut % (Auto) 76.0 H (45-73) % Lymph % (Auto) 15.7 L (20-40) % Brooke % (Auto) 7.7 (2-11) % Eos % (Auto) 0.1 (0-4) % Baso % (Auto) 0.3 (0-2) % Lymph # (Auto) 1.7 (1.2-4.9) X10*3/uL Brooke # (Auto) 0.8 (0.1-1.2) X10*3/uL Eos # (Auto) 0.0 (0.0-0.4) X10*3/uL Baso # (Auto) 0.0 (0.0-0.2) X10*3/uL Abs Immat Gran (auto) 0.02 (0.00-0.03) X10*3/uL Absolute Neuts (auto) 8.1 (2.0-8.3) x10*3/uL Absolute Nucleated RBC 0.000 (0.0-0.012) X10*3/uL Nucleated RBC % (auto) 0.0 (0.0-0.2) /100WBC Sodium 140 (135-145) mmol/L Potassium 3.6 (3.3-5.1) mmol/L Chloride 103 (96-108) mmol/L Carbon Dioxide 21 L (22-29) mmol/L Anion Gap 20 (12-20) BUN 5 L (9-16) mg/dL Creatinine 0.97 (0.5-1.4) mg/dL Estim Creat Clear Calc 125.2 Estimated GFR > 60 Random Glucose 97 (60-115) mg/dL Calcium 10.1 (8.4-10.2) mg/dL Magnesium 2.0 (1.6-2.6) mg/dL Total Bilirubin 1.9 H (0.0-1.0) mg/dL Direct Bilirubin 0.7 H (0.0-0.5) mg/dL AST 39 H (5-37) U/L ALT 34 (0-40) U/L Alkaline Phosphatase 99 (39-117) U/L Troponin I High Sens < 2.7 (<3.5-35.0) ng/L Total Protein 8.5 H (6.5-8.0) g/dL Albumin 4.6 (3.5-5.0) g/dL Urine Opiates Screen Not Detected (Not Detect) Urine Fentanyl Screen Not Detected (Not Detect) Ur Barbiturates Screen Not Detected (Not Detect) Ur Phencyclidine Scrn Not Detected (Not Detect) Ur Amphetamines Screen Not Detected (Not Detect) U Benzodiazepines Scrn Not Detected (Not Detect) Urine Cocaine Screen POSITIVE H (Not Detect) U Marijuana (THC) Screen POSITIVE H (Not Detect) Ethyl Alcohol 56 mg/dL Independent Interpretation I performed an independent interpretation of an: EKG Interpretation: Normal sinus rhythm heart rate 87 beats per minute normal intervals normal no acute ST-T changes no acute ishemia Discharge Plan Discharge Clinical Impression: Atypical chest pain, Anxiety Patient Disposition: Home, Self-Care Instructions: Noncardiac Chest Pain (ED), Anxiety (ED) Additional Instructions: Rest at home Stop using cocaine Stop drinking alcohol Medicine to relax and sleep as prescribed Follow-up with your PCP as needed Prescriptions: New lorazepam [Ativan] 1 mg tablet 1 mg PO BID PRN (Reason: anxiety/sleep) Qty: 14 0RF No Action bisacodyl [Dulcolax (bisacodyl)] 5 mg tablet,delayed release (DR/EC) 20 mg PO ONCE 1 Days Qty: 4 0RF Rx Instructions: Take 4 tablets by mouth at 12:00pm the day before your procedure. polyethylene glycol 3350 [Miralax] 17 gram/dose powder 238 g PO ONCE PRN (Reason: laxative effect) 1 Days Qty: 238 0RF Rx Instructions: Take as directed by mouth the day before your procedure. Stand Alone Forms: Work/School Release Interventions: ED Discharge Assessment Last Done: 11/07/22 01:18 Discharge Date/Time: 11/07/22 01:18
--- NOTE | 2022-11-06 19:39 | ECG_ITS ---
Test Reason : CHEST PAIN Blood Pressure : / mmHG Vent. Rate : 087 BPM Atrial Rate : 087 BPM P-R Int : 162 ms QRS Dur : 084 ms QT Int : 372 ms P-R-T Axes : 060 007 027 degrees QTc Int : 447 ms Normal sinus rhythm Normal ECG When compared with ECG of 19-JAN-2021 12:24, No significant change was found Referred By: Jocelyn Aguilar Electronically Signed By:GRAHAM LAI
[2022-11-06 19:40] VITALS: BP 182/111; PULSE 101; RESP 18; TEMP 36.5; O2SAT 99; BMI 38.4
[2022-11-06 20:07] LABS: MANUAL DIFF FLAG NO
[2022-11-06 20:08] LABS: Basophils Percent Auto 0.3 % (0-2); Eosinophils Percent Auto 0.1 % (0-4); Hematocrit 53.1 % (42.0-52.0); Hemoglobin 18.2 g/dl (14.0-18.0); Imm Gran Abs Auto 0.02 X10*3/uL (0.00-0.03); Imm Gran Pct Auto 0.2 % (0.0-0.4); Lymphocytes Absolute Auto 1.7 X10*3/uL (1.2-4.9); Lymphocytes Percent Auto 15.7 % (20-40); Mean Corpuscular HGB Conc 34.3 g/dl (31.0-36.0); Mean Corpuscular Hemoglobin 28.4 pg (27.0-33.0); Mean Corpuscular Volume 82.8 fL (80.0-98.0); Mean Platelet Volume 8.7 fL (9.4-12.4); Monocytes Absolute Auto 0.8 X10*3/uL (0.1-1.2); Monocytes Percent Auto 7.7 % (2-11); Neutrophils Absolute Auto 8.1 x10*3/uL (2.0-8.3); Platelet Count 407 X10*3/uL (160-400); Red Blood Count 6.41 X10*6/uL (4.60-5.80); Red Cell Distribution Width 14.5 % (11.0-16.0); White Blood Count 10.7 X10*3/uL (4.8-10.8)
[2022-11-06 20:16] LABS: Amphetamine Screen Urine Not Detected (Not Detect); Barbiturates, Urine Not Detected (Not Detect); Benzodiazepines Screen Urine Not Detected (Not Detect); Cannabinoid Screen Urine POSITIVE (Not Detect); Cocaine Screen Urine POSITIVE (Not Detect); Fentanyl, urine Not Detected (Not Detect); Opiate Screen Urine Not Detected (Not Detect); Phencyclidine Screen Urine Not Detected (Not Detect)
[2022-11-06 20:22] LABS: Alanine Aminotransferase 34 U/L (0-40); Albumin Level 4.6 g/dL (3.5-5.0); Alkaline Phosphatase 99 U/L (39-117); Anion Gap 20 (12-20); Aspartate Amino Transferase 39 U/L (5-37); Bilirubin Direct 0.7 mg/dL (0.0-0.5); Bilirubin Total 1.9 mg/dL (0.0-1.0); Blood Urea Nitrogen 5 mg/dL (9-16); Calcium 10.1 mg/dL (8.4-10.2); Carbon Dioxide 21 mmol/L (22-29); Chloride 103 mmol/L (96-108); Creatinine Clr Calc Pharmacy 125.2; Estimated Glomerular Filt Rate > 60; Ethanol 56 mg/dL; Glucose Random 97 mg/dL (60-115); Potassium 3.6 mmol/L (3.3-5.1); Sodium 140 mmol/L (135-145); Total Protein 8.5 g/dL (6.5-8.0)
[2022-11-06 20:29] LABS: Troponin-I High Sensitivity < 2.7 ng/L (<3.5-35.0)
[2022-11-06 22:03] VITALS: BP 177/99; PULSE 81; RESP 20; TEMP 36.7; O2SAT 99
[2022-11-06] MEDS: LORazepam 1 MG TABLET 2 MG PO (22:54)
[2022-11-07 00:36] VITALS: BP 158/104; PULSE 95; RESP 19; TEMP 36.8; O2SAT 96
--- NOTE | 2022-11-07 01:17 | PC.NURSE ---
pt ambulatory at discharge. pt friend to pick pt up for transport home. pt provided with discharge packet and work note at discharge. pt verbalized understanding of discharge plan
== END 2022-11-07 01:18 | disposition home or self-care (01) ==
PROVIDERS: Physician Assistant; Emergency Provider Internal Medicine
DX: R07.89 Other chest pain (principal); R06.02 Shortness of breath; F41.1 Generalized anxiety disorder; F43.0 Acute stress reaction; Z79.899 Other long term (current) drug therapy
CPT/HCPCS: 36415; 71046; 80048; 80076; 80307; 83735; 84484; 85025; 93005; 99284; 99285

== ENCOUNTER 2022-12-11 11:18 | Emergency (ER) | payer OTHER, SELFPAY ==
[2022-12-11 11:28] VITALS: BP 145/95; PULSE 95; RESP 18; TEMP 36.7; O2SAT 96; BMI 37.6
--- NOTE | 2022-12-11 11:35 | ED_ITS ---
HPI - General Adult General Chief complaint: Ear Problems Stated complaint: ear pain and eye issue Time Seen by Provider: 12/11/22 12:17 Source: patient Mode of arrival: ambulatory Limitations: no limitations History of Present Illness HPI narrative: 47 year old male with pmhx significant for polysubstance abuse and DDD, presents to the ED today with a complaint of right ear pain 2 days after riding a roller coaster. Reports sharp pain in his right ear. Denies decreased hearing. Additionally admits to waking up with redness, irritation, and crusting to his left eye this morning. Endorses sand paper feeling in his left eye. Denies FB sensation. Denies drainage from the eye. Does not wear contacts. Denies headache, neck pain, fever/chills, rash, sore throat, CP, cough, shortness of breath, nausea/ vomiting, abdominal pain. Related Data Previous Rx's Medication Instructions Recorded bisacodyl 5 mg tablet,delayed 20 mg (4 x 5 mg) PO ONCE 10/25/22 release (Dulcolax (bisacodyl)) colonoscopy prep 1 day #4 tabs polyethylene glycol 3350 17 238 g PO ONCE PRN laxative effect 10/25/22 gram/dose oral powder (Miralax) 1 day #238 grams lorazepam 1 mg tablet (Ativan) 1 mg PO BID PRN anxiety/sleep #14 11/06/22 tabs cefdinir 300 mg capsule 300 mg PO BID 5 days #10 caps 12/11/22 erythromycin 5 mg/gram (0.5 %) eye 1 appl ophthalmic (eye) QID #3.5 12/11/22 ointment grams Allergies Allergy/AdvReac Type Severity Reaction Status Date / Time penicillin V Allergy Unknown Unknown Verified 10/25/22 11:34 Penicillins [PENICILLINS] Allergy Unknown UNKNOWN Verified 10/25/22 11:34 Review of Systems Review of Systems: Constitutional: No fever, chills, fatigue, night sweats, weight changes ENT/Mouth: +ear pain, No hearing loss, nasal congestion, sinus pain, rhinorrhea, sore throat Eyes: + eye pain, No swelling, +redness, No vision changes, discharge Cardio: No chest pain, palpitations, BISHOP, orthopnea, peripheral edema Pulm: No SOB, cough, sputum, wheezing, dyspnea, hemoptysis GI: No nausea, vomiting, hematemesis, abdominal pain, diarrhea : No irregular bleeding, dysuria, frequency, urgency, hesitancy, hematuria, flank pain MSK: No back pain, neck pain, joint pain, myalgias Skin: No lesions, rashes Neuro: No weakness, numbness, paresthesias, LOC, dizziness, headache Psych: No anxiety/panic, depression, SI/HI, AH/VH All other systems reviewed and are negative. [facility] Past Medical History Attestation statement: The following information was validated with the patient. 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 Back pain Surgical History Hx of tonsillectomy Hx of cholecystectomy Family History Family History Brother Mental health disorder Mother Colon cancer Father HTN (hypertension) History of open heart surgery Social History Social History Housing: House Alcohol intake: never Patient Tobacco Use Status: Never used Tobacco Smoked in Last 30 Days: No e-Cigarette/Vaping Use: Currently Using Use of substances other than those prescribed or required for medical reasons: No Substance Use Type: Crack/Cocaine and Marijuana Advance Directives: No service: No Current occupational status: employed Current occupation: [employer] Physical Exam ED Vital Signs: Vital Signs - 24 hr 12/11/22 11:28 12/11/22 13:45 Temperature 98.0 F 98 F Pulse Rate 95 66 Respiratory Rate 18 18 Blood Pressure 145/95 H 140/78 H Pulse Oximetry 96 99 Oxygen Delivery Method Room Air Room Air BMI result Body Mass Index 37.6 Vital signs are stable. Const General: cooperative, no acute distress, alert and awake Orientation/consciousness: patient oriented x3 Limitations: no limitations HENMT Other: + Right EAC without erythema or edema. Erythematous right TM with effusion. No perforation. No pain on palpation/manipulation of the pinna/ tragus b/l. No mastoid tenderness b/l. + There is a moderate amount of cerumen in the right EAC, TM intact. Head: Yes normal to inspection, Yes normocephalic and Yes atraumatic Ears: hearing grossly normal bilaterally General nose exam: Normal external nose present Eyes Other: EOMs intact bilaterally without entrapment. + There is conjunctival injection noted to the left eye without discharge or excessive tearing. No visible FB No uptake on fluorescein stain to suggest corneal abrasion or foreign body. No periorbital swelling. Visual phelps intact. General: appearance normal, both eyes and all related structures Periorbital: periorbital findings normal Eyelids: Yes eyelids normal Sclerae: sclerae normal Corneas: corneas normal Pupils: Equal, round and reactive pupils present Neck Neck: Yes normal visual inspection, Yes full ROM, Yes no lymphadenopathy and Yes no meningeal signs Resp Effort & Inspection: normal respiratory effort Auscultation: clear to auscultation bilaterally Cardio Rate: regular rate Rhythm: regular rhythm Peripheral pulses: radial pulses present Skin General skin exam: no rashes or lesions noted Neuro General: patient oriented x3, gait normal, moves all extremities and no meningeal signs Cranial nerves: Yes CN's II-XII intact bilaterally and Yes Equal, round and reactive pupils present Extrem General: Yes normal to inspection and Yes full ROM Course Course Course Narrative: RME: 47 yold male presents to the ED for left eye irratation, right ear pain and nasal congestion. covid and influenza swab ordered Reevaluation(s) Reevaluation #1: 1324-- Serology negative for COVID and influenza. No uptake or FB suggestive of corneal abrasion or eye FB noted on fluorescein stain. Presentation consistent with right otitis media and possible bacterial conjunctivitis of the left eye. Patient reports allergy to penicllin with unknown reaction > will send cefdinir for otitis media. Additionally will send erythromycin ointment for suspected conjunctivitis. Informed patient of disposition. All questions answered at this time. Discussed strict return precautions. Patient agreeable with disposition and stable for discharge. Medications Administered Discontinued Medications Generic Name Dose Route Start Last Admin Trade Name Freq PRN Reason Stop Dose Admin Fluorescein Sodium 1 strip 12/11/22 12:51 12/11/22 12:57 Fluorescein Sodium Strip EYE-LEFT 12/11/22 12:52 1 strip ONCE ONE Administration Tetracaine HCl 3 drop 12/11/22 12:51 12/11/22 12:57 Tetracaine Hcl/Pf 0.5% Oph Fanny 4 Ml Drops EYE-LEFT 12/11/22 12:52 3 drop ONCE ONE Administration Procedures FB Removal Eye Time Out performed: Yes Location: eye (L) Topical anesthetic used: tetracaine Evidence of corneal penetration: No Technique: irrigation Post-procedure medication: ophthalmic antibiotic Patient tolerated procedure: well Complications: other (no FB or corneal abrasion visualized) Medical Decision Making Medical Decision Making [facility] Narrative: 47 year old male with pmhx significant for polysubstance abuse and DDD, presents to the ED today with a complaint of right ear pain 2 days after riding a roller coaster. Vital signs are stable. Afebrile. Patient is nontoxic appearing and in NAD. PE notable for erythematous right TM with effusion. No perforation. No pain on palpation/manipulation of the pinna/ tragus b/l. No mastoid tenderness b/l. There is a moderate amount of cerumen in the right EAC, TM intact. EOMs are intact bilaterally without entrapment.?There is conjunctival injection noted to the left eye without discharge or excessive tearing. No visible FB? No uptake o n fluorescein stain to suggest corneal abrasion or foreign body. No periorbital swelling. Visual phelps intact. Clinical concern for otitis externa vs media vs TM perforation. Presentation not consistent with mastoiditis or malignant otitis externa. Concern for viral vs bacterial conjunctivitis vs corneal abraision vs iritis vs vs viral syndrome vs sinusitis. Unlikely periorbital or orbital cellul itis. Differential Diagnosis Differential Diagnoses: The differential diagnosis associated with the presentation includes As above. Admission/Observation Not indicated. Lab Data [facility] Lab Attestation statement: I reviewed the patient's lab results. As above. Labs: Lab Results 12/11/22 Range/Units 12:20 COVID-19 (PORSCHE) Negative (Negative) COVID-19 Clin Com See Note Influenza Type A (YOSSI) Negative (Negative) Influenza Type B (YOSSI) Negative (Negative) Influenza A & B Note See Note External Record Review External record reviewed: Inpatient record Prescription Management I considered prescription management with: Antibiotic Social Determinants Patient?s care significantly limited by Social Determinants of Health including: Other Social Determinant of Health Critical Care Time Critical Care Time Critical Care Time: No Discharge Plan Discharge Clinical Impression: Otitis media, Conjunctivitis Patient Disposition: Home, Self-Care Instructions: Ear Infection (ED), Conjunctivitis (ED) Additional Instructions: You tested negative for COVID and flu today. Your left ear is infected. Cefdinir has been sent to her pharmacy. This is an antibiotic. Take this as prescribed for your ear infection. Take the entire course of antibiotics and do not stop early. This may cause the infection to come back or worsen. Erythromycin eye ointment has been sent to your pharmacy. Apply this your eye 4 times daily for infection. Return to the emergency department if her symptoms persist or worsen. Follow-up with your primary care provider as needed. In the case of emergency call 911 or Prescriptions: New cefdinir 300 mg capsule 300 mg PO BID 5 Days Qty: 10 0RF erythromycin 5 mg/gram (0.5 %) ointment 1 appl ophthalmic (eye) QID Qty: 3.5 0RF No Action lorazepam [Ativan] 1 mg tablet 1 mg PO BID PRN (Reason: anxiety/sleep) Qty: 14 0RF bisacodyl [Dulcolax (bisacodyl)] 5 mg tablet,delayed release (DR/EC) 20 mg PO ONCE 1 Days Qty: 4 0RF Rx Instructions: Take 4 tablets by mouth at 12:00pm the day before your procedure. polyethylene glycol 3350 [Miralax] 17 gram/dose powder 238 g PO ONCE PRN (Reason: laxative effect) 1 Days Qty: 238 0RF Rx Instructions: Take as directed by mouth the day before your procedure. Referrals: Physician,Unknown J [Primary Care Provider] - Stand Alone Forms: Work/School Release Interventions: ED Discharge Assessment Last Done: 12/11/22 13:53 Discharge Date/Time: 12/11/22 13:50
[2022-12-11 12:48] LABS: COVID-19 Test Negative (Negative); IDNOW Serial# 08D9AD1C
[2022-12-11 12:49] LABS: IDNOW Serial# BCCEAD1C; Influenza A Negative (Negative); Influenza B2 Negative (Negative)
[2022-12-11] MEDS: Tetracaine HCl/PF 0.5% Oph Sol 4 ML DROPS 3 DROP EYE-LEFT (12:57)
[2022-12-11] MEDS: Fluorescein Sodium STRIP 1 STRIP EYE-LEFT (12:57)
[2022-12-11 13:45] VITALS: BP 140/78; PULSE 66; RESP 18; TEMP 36.6; O2SAT 99
== END 2022-12-11 13:50 | disposition home or self-care (01) ==
PROVIDERS: Physician Assistant; Emergency Provider Emergency Medicine
DX: T15.92XA Foreign body on external eye, part unspecified, left eye, initial encounter (principal); H92.01 Otalgia, right ear; F14.90 Cocaine use, unspecified, uncomplicated; F12.90 Cannabis use, unspecified, uncomplicated; H10.9 Unspecified conjunctivitis; W44.H0XA Other sharp object unspecified, entering into or through a natural orifice, initial encounter; Y93.9 Activity, unspecified; Y92.9 Unspecified place or not applicable; Y99.9 Unspecified external cause status; Z11.52 Encounter for screening for COVID-19; Z20.822 Contact with and (suspected) exposure to COVID-19; Z79.899 Other long term (current) drug therapy
CPT/HCPCS: 65220; 87502; 87635; 99283; 99284

== ENCOUNTER 2023-01-04 11:22 | Day surgery (SDC) | payer OTHER, SELFPAY ==
--- NOTE | 2023-01-03 11:08 | P.CONAN_ITS ---
Documented by User: Alana Hyatt NP 01/03/23 11:10 HPI - Anesthesia Eval Consult details Narrative: 47yo M for Colonoscopy Polysub abuse with +Utox for cocaine 10/2022 [facility] Active Problems Active Problems: All Active Problems (Updated 12/12/22 @ 00:01 by Background Damonaon) Family history of malignant neoplasm of colon in relative diagnosed when younger than 50 years of age (Acute) Encounter for screening colonoscopy (Acute) Obesity (Acute) Polysubstance abuse (Acute) Palpitation (Acute) Lumbar degenerative disc disease (Acute) Sacroiliac joint dysfunction of both sides (Acute) Past Medical History Medical History Lumbar degenerative disc disease 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 Back pain Family History Family History Brother Mental health disorder Mother Colon cancer Father HTN (hypertension) History of open heart surgery Surgical History Surgical History Hx of tonsillectomy Hx of cholecystectomy Social History Social History Housing: House Alcohol intake: never Patient Tobacco Use Status: Current someday Tobacco user Tobacco use type: Smokeless Tobacco e-Cigarette/Vaping Use: Currently Using Substance Use Type: Crack/Cocaine and Marijuana service: No Current occupational status: employed Current occupation: [employer] Meds Allergies Allergy/AdvReac Type Severity Reaction Status Date / Time penicillin V Allergy Unknown Unknown Verified 10/25/22 11:34 Penicillins [PENICILLINS] Allergy Unknown UNKNOWN Verified 10/25/22 11:34 Exam Exam Date and Time: January 03, 2023 1108 Pertinent Lab Results Pertinent Lab Results: Laboratory Tests 11/06/22 20:02 WBC 10.7 Hgb 18.2 H D Hct 53.1 H Plt Count 407 H Sodium 140 Potassium 3.6 Chloride 103 Carbon Dioxide 21 L BUN 5 L Creatinine 0.97 Narrative Narrative: EKG 10/2022 Vent. 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 Back pain Family History Family History Brother Mental health disorder Mother Colon cancer Father HTN (hypertension) History of open heart surgery Family history of problems with anesthesia: No Surgical History Surgical History Hx of tonsillectomy Hx of cholecystectomy History of Problems with Anesthesia: No Social History Social History Housing: House Alcohol intake: never Patient Tobacco Use Status: Current someday Tobacco user Tobacco use type: Smokeless Tobacco e-Cigarette/Vaping Use: Currently Using Substance Use Type: Crack/Cocaine and Marijuana service: No Current occupational status: employed Current occupation: [employer] Meds Allergies Allergy/AdvReac Type Severity Reaction Status Date / Time penicillin V Allergy Unknown Unknown Verified 10/25/22 11:34 Penicillins [PENICILLINS] Allergy Unknown UNKNOWN Verified 10/25/22 11:34 Exam Airway Mallampati Class: IV Loose/Missing/Broken Teeth: Yes (chipped teeth) Assessment and Plan Assessment Anesthesia Assessment: Anesthesia Plan Discussed Final Anesthetic Review Family History of Problems with Anesthesia: No History of Problems with Anesthesia: No NPO: Yes ASA Class: III Final Preanesthetic Review: Meds/Allgs Chart Reviewed, Consent Obtained/Reviewed and Anes Risks/Benef Reviewed Patient Risk: Intermediate Procedure Risk: Intermediate Anesthetic Plan Anesthetic Plan: MAC: and Agree w/ Assess. and Plan Disposition: Standard PACU
[2023-01-04 11:30] VITALS: BMI 36.3
--- NOTE | 2023-01-04 11:36 | PC.NURSE ---
patient states he quit cocaine last october.
[2023-01-04 11:41] VITALS: BP 133/85; PULSE 86; RESP 16; TEMP 37; O2SAT 96
[2023-01-04] MEDS: Lactated Ringers 1,000 ML 100 ML IVCONT (11:56)
--- NOTE | 2023-01-04 12:50 | P.OP_ITS ---
Operative Note Operative Note Date of Service: 01/04/23 Narrative: Procedure: Colonoscopy Indication: Family history of colon cancer Endoscopist: Kamla Gong MD Anesthesia Provider: Roya See CRNA Anesthesia type: MAC Instrument: Olympus [id number]-[id number] Consent: Indication, risks vs benefits, and alternatives were discussed with the patient who gave written informed consent to proceed. EKG, pulse, pulse oximetry and blood pressure were monitored throughout the procedure. Please see anesthesia flowsheet. Procedure: The patient was brought to the procedure room and placed in the left lateral decubitus position. IV medications were administered by the anesthesia provider in attendance. A digital rectal exam was performed which was abnormal due to finding of ext hemorrhoids. The distal attachment cap was affixed to the tip of the colonoscope which was then inserted through the anus and advanced through the colon to the cecum at 70 cm,and terminal ileum. Ileocecal valve and appendiceal orifice were identified. Mucosa was carefully examined under high definition white light as the instrument was slowly withdrawn in a retrograde panoramic fashion. Retroflexion was performed in rectum. The procedure was not difficult. There were no immediate obvious complications. The quality of the prep was BBPS: 3+2+3 = adequate Withdrawal time 7 minutes. Limitations: No limitations. Findings: Mucosa: Normal to cecum and terminal ileum. Protruding lesions: * Medium internal hemorrhoids without stigmata of recent bleeding. Excavated lesions: * Scattered diverticulosis of sigmoid colon. Impression: 1. Normal colon and terminal ileum mucosa 2. Diverticulosis 3. External and internal hemorrhoids Recommendations: - Repeat colonoscopy in 5 years due to fam hx of CRC in [place] - Increase fiber intake. Avoid constipation and straining.
[2023-01-04 12:57] VITALS: BP 104/66; PULSE 81; RESP 16; TEMP 36.6; O2SAT 96
[2023-01-04 13:12] VITALS: BP 119/74; PULSE 71; RESP 16; TEMP 36.6; O2SAT 96
== END 2023-01-04 13:55 | disposition home or self-care (01) ==
PROVIDERS: Visit Provider Internal Medicine
PROC: 0DJD8ZZ Inspection of Lower Intestinal Tract, Via Natural or Artificial Opening Endoscopic (ICD-10-PCS; CPT 45378; principal; 2023-01-04 12:50)
DX: Z12.11 Encounter for screening for malignant neoplasm of colon (principal); Z80.0 Family history of malignant neoplasm of digestive organs; K57.30 Diverticulosis of large intestine without perforation or abscess without bleeding; K64.8 Other hemorrhoids; K64.4 Residual hemorrhoidal skin tags; Z88.0 Allergy status to penicillin; Z90.49 Acquired absence of other specified parts of digestive tract; F14.90 Cocaine use, unspecified, uncomplicated; F12.90 Cannabis use, unspecified, uncomplicated
CPT/HCPCS: 45378; J2250; J2704

== ENCOUNTER → 2023-01-04 11:22 | Outpatient (BNV) | payer OTHER, SELFPAY | PROVIDERS: Visit Provider Internal Medicine | DX: Z12.11 Encounter for screening for malignant neoplasm of colon (principal); Z80.0 Family history of malignant neoplasm of digestive organs; K64.8 Other hemorrhoids; K57.30 Diverticulosis of large intestine without perforation or abscess without bleeding | CPT/HCPCS: 45378 ==

== ENCOUNTER 2023-01-25 10:04 | Outpatient (AMB) | payer OTHER, SELFPAY ==
--- NOTE | 2023-01-25 10:12 | MHC.OFFVIS ---
Intake Vital Signs 01/25/23 10:14 Height 5 ft 11 in Weight 262 lb 5.601 oz BMI 36.6 BP 131/73 Blood Pressure Location Lt brachial Position Sitting Pulse 93 Intake Visit Reasons: s/p colon Beltran Intake Note: Tom presents in the office as a follow up colonoscopy. CC: He was told that he could have cancelled this appt. 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 Back pain Surgical History Hx of colonoscopy Hx of tonsillectomy Hx of cholecystectomy Family History Brother Mental health disorder Mother Colon cancer Father HTN (hypertension) History of open heart surgery Social History Housing: House Alcohol intake: never Patient Tobacco Use Status: Current someday Tobacco user Tobacco use type: Smokeless Tobacco e-Cigarette/Vaping Use: Currently Using Substance Use Type: Crack/Cocaine and Marijuana service: No Current occupational status: employed Current occupation: [employer] Review of Systems Const All systems reviewed & are unremarkable except as noted in HPI and below Physical Exam Vital Signs: Last Vital Signs Pulse 93 01/25/23 10:14 BP 131/73 01/25/23 10:14 BMI result Body Mass Index 36.6 Const General: cooperative, healthy appearing, comfortable and no acute distress Orientation/consciousness: patient oriented x3 Limitations: language barrier Eyes Conjunctivae: conjunctivae normal Resp Effort & Inspection: normal respiratory effort and able to speak in complete sentences Neuro General: patient oriented x3 Extrem General: Yes full ROM Psych Appearance: grossly normal and well kempt Mental Status: mental status grossly normal Speech and movement: Normal speech and movement present and Clear speech present Affect: normal affect Attitude: cooperative Thought content: Normal thought content present Results Reviewed Results Reviewed: Findings: Mucosa: Normal to cecum and terminal ileum. Protruding lesions: Medium internal hemorrhoids without stigmata of recent bleeding. Excavated lesions: Scattered diverticulosis of sigmoid colon. Impression: 1. Normal colon and terminal ileum mucosa 2. Diverticulosis 3. External and internal hemorrhoids Recommendations: - Repeat colonoscopy in 5 years due to fam hx of CRC in [place] - Increase fiber intake. Avoid constipation and straining. Assessment & Plan Assessment & Plan (1) Family history of GI tract cancer: Comment: mother at 48- colon cancer Sibs with polyps Code(s): Z80.0 - Family history of malignant neoplasm of digestive organs (2) Diverticulosis of colon: Code(s): K57.30 - Diverticulosis of large intestine without perforation or abscess without bleeding Plan: ER protocol HFD food to avoid (3) Hemorrhoids: Code(s): K64.9 - Unspecified hemorrhoids Plan repeat 5 year colon - fam hx HFD avoid strain Patient Instructions: repeat 5 year colon - fam hx HFD foods to avoid avoid strain ER protocol for diverticulosis/ diverticulitis Coding Level of Care Code Est Pt Level 3 (24534) Diagnoses Family history of GI tract cancer Z80.0 Diverticulosis of colon K57.30 Hemorrhoids K64.9 Time Spent (min) 20
[2023-01-25 10:14] VITALS: BP 131/73; PULSE 93; BMI 36.6
== END 2023-01-25 10:40 | disposition home or self-care (01) ==
PROVIDERS: Visit Provider Physician Assistant
DX: Z80.0 Family history of malignant neoplasm of digestive organs (principal); K57.30 Diverticulosis of large intestine without perforation or abscess without bleeding; K64.9 Unspecified hemorrhoids
CPT/HCPCS: 99213

== ENCOUNTER → 2023-01-25 10:04 | Outpatient (BNVA) | payer OTHER, SELFPAY | PROVIDERS: Visit Provider Physician Assistant | DX: K57.30 Diverticulosis of large intestine without perforation or abscess without bleeding (principal); K64.4 Residual hemorrhoidal skin tags; K64.8 Other hemorrhoids; Z80.0 Family history of malignant neoplasm of digestive organs | CPT/HCPCS: 99212 ==

== ENCOUNTER 2023-08-17 15:04 | Outpatient (AMB) | payer OTHER, SELFPAY ==
[2023-08-17 15:12] VITALS: BP 142/80; PULSE 80; O2SAT 98; BMI 34.9
--- NOTE | 2023-08-17 15:12 | MHC.PC.OV ---
Vital Signs 08/17/23 15:12 Height 5 ft 11 in Weight 250 lb BMI 34.9 BP 142/80 H Blood Pressure Location Lt brachial Position Sitting Pulse 80 Pulse Source Pulse Oximeter Pulse Oximetry (%) 98 Oxygen Delivery Method Room Air Intake Visit Reasons: Annual exam, Patient will need paper filled out Intake Note: Patient is here today for a physical. [facility] Laboratory Technician Required: No Allergies penicillin V Allergy (Unknown, Verified 08/17/23 16:03) Unknown Penicillins [PENICILLINS] Allergy (Unknown, Verified 08/17/23 16:03) UNKNOWN Medication List - Last Reconciled 08/17/23 by Pete Soriano MD No Known Home Meds Tobacco use date assessed: 08/17/23 Dental Screening Dental Screen Date: 08/17/23 Did you have a dental visit in the last 12 months?: Yes Did you have a dental problem in the last 6 months where you did not have access to dental care?: No Was dental information given to patient?: Patient has dentist HPI Annual exam, Patient will need paper filled out HPI Details Patient comes in today for his annual physical examination - used to see Jocelyn Feliciano, who is no longer with the practice Patient states that he feels well overall, is currently not taking any medications on a regular basis and has no significant medical issues as far as he is aware of Recalls that he took some creatine and body building supplements for a while a few months ago but stopped taking them as well States that he recently tried to go and donate blood but was advised that he had some abnormality on his recent labs from 10/2022 and needs to see his PCP and get medically cleared before they will allow him to donate blood again States that he was given some papers to bring with him to his appointment and have them filled out if he is cleared One of them was a result of a serum protein electrophoresis scan than was done in May 2023 showing a huge spike in his total protein level although there does not appear to be any monoclonal spike on the scan He denies any headaches or dizziness Denies any chest pains, no SOB No nausea/vomiting, no abdominal pain No change in bowel habits noted He denies any acute urinary symptoms [facility] Medical History (Updated 08/19/23 @ 06:35 by Pete Soriano MD) Obesity (BMI 30-39.9) Lumbar degenerative disc disease 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 Back pain Surgical History (Updated 08/19/23 @ 06:33 by Pete Soriano MD) Hx of colonoscopy Hx of tonsillectomy Hx of cholecystectomy Family History Brother Mental health disorder Mother Colon cancer Father HTN (hypertension) History of open heart surgery Social History Housing: House Alcohol intake: never Patient Tobacco Use Status: Current someday Tobacco user Tobacco use type: Smokeless Tobacco e-Cigarette/Vaping Use: Currently Using Substance Use Type: Crack/Cocaine and Marijuana service: No Current occupational status: employed Current occupation: [employer] Cognitive needs: No Hearing needs: No Vision needs: No Questionnaire PHQ-9 Over the last 2 weeks, how often have you been bothered by any of the following problems? 1. Little interest or pleasure in doing things: several days 2. Feeling down, depressed, or hopeless: several days 3. Trouble falling or staying asleep, or sleeping too much: not at all 4. Feeling tired or having little energy: not at all 5. Poor appetite or overeating: not at all 6. Feeling bad about yourself - or that you are a failure or have let yourself or your family down: not at all 7. Trouble concentrating on things, such as reading the newspaper or watching television: not at all 8. Moving or speaking so slowly that other people could have noticed. Or the opposite - being so fidgety or restless that you have been moving around a lot more than usual: not at all 9. Thoughts that you would be better off or of hurting yourself in some way: not at all Total score: 2 Depression Screening Interpretation: Negative Depression Screening Done: Yes 53726 - PHQ-9 Billing: Yes Source: Developed by Drs. Alex Oropeza, Talya Hernandez, Elroy Gibbs and colleagues, with an educational conner from [employer]. Thrive Questionnaire Date Thrive assessed: 08/17/23 I am a: Patient What is your living situation today?: I have a steady place to live Within the past 12 months, did the food you bought not last and you didn't have the money to get more?: Never true Within the past 12 months, did you worry whether your food would run out before you got money to buy more?: Never true Do you have trouble paying for medicines?: No Do you have trouble getting transportation to medical appointments?: No Do you have trouble paying your heating and electricity bill?: No Do you have trouble taking care of your child, family member or friend?: No Do you have trouble with day-to-day activities such as bathing, preparing meals, shopping, managing finances, etc.?: No Are you currently unemployed and looking for a job?: No Are you interested in more education?: No Please select the resources that you would like help with: None Currently or been in a relationship where the following occur: no concerns reported THRIVE Score: 0 AUDIT C Alcohol Use Questionnaire (AUDIT-C) 1. How often do you have a drink containing alcohol?: 2-4 times a month 2. How many drinks containing alcohol do you have on a typical day when you are drinking?: 1 or 2 3. How often do you have six or more drinks on one occasion?: Never Total Score: 2 Score Reviewed/Action Taken: Yes BERTO-7 AMB Questionnaire BERTO-7 Date BERTO - 7 assessed: 08/17/23 Feeling nervous, anxious, or on edge: 1 = Several days Not being able to stop or control worryin = Several days Worrying too much about different things: 1 = Several days Trouble relaxin = Not at all Being so restless that it is hard to sit still: 0 = Not at all Becoming easily annoyed or irritable: 0 = Not at all Feeling afraid as if something awful might happen: 0 = Not at all Total BERTO-7 score (0-4 normal; 5-9 mild; 10-14 moderate; 15-21 severe): 3 Source: Developed by Drs. Alex Oropeza, Talya Hernandez, Elroy Gibbs and colleagues, with an educational conner from [employer]. BERTO-7 Assessment Billing BERTO-7 Assessment Tool: BERTO-7 Assessment 59838 Review of Systems Const Denies chills, Denies fatigue, Denies fever(s), Denies headache(s), Denies malaise and Denies weakness Eyes Denies blurry vision, Denies change in vision, Denies irritation and Denies itchy eyes ENT Denies dysphagia, Denies dizziness, Denies otalgia, Denies headache(s), Denies nasal congestion, Denies neck pain, Denies odynophagia and Denies sore throat Card Denies chest pain, Denies rapid heart rate, Denies irregular heart rhythm, Denies palpitations and Denies dyspnea Resp Denies chest congestion, Denies cough, Denies dyspnea and Denies wheezing GI Denies abdominal pain, Denies bloating, Denies constipation, Denies dysphagia, Denies heartburn, Denies diarrhea, Denies nausea, Denies odynophagia and Denies vomiting Denies hematuria, Denies difficulty urinating, Denies dysuria, Denies urinary frequency and Denies urinary urgency Musc Reports back pain (on and off, over the lower back), Denies arthralgias, Denies joint swelling, Denies muscle weakness and Denies neck pain Skin/Breast Denies change in pigmentation, Denies lesions, Denies rash and Denies unusual bruising Neuro Denies dizziness, Denies headache(s), Denies paresthesias and Denies weakness Endo Denies fatigue and Denies palpitations Aller/Immun Denies itchy eyes and Denies wheezing Physical exam (Primary Care) Vital Signs: Last Vital Signs Pulse 80 08/17/23 15:12 BP 142/80 H 08/17/23 15:12 Pulse Ox 98 08/17/23 15:12 Oxygen Delivery Method Room Air 08/17/23 15:12 BMI result Body Mass Index 34.9 Tobacco/Smoking Status: Tobacco use Status Tobacco use date assessed 08/17/23 08/17/23 15:13 Patient Tobacco Use Status Current someday Tobacco 08/17/23 15:13 Tobacco use type Smokeless Tobacco 08/17/23 15:13 e-Cigarette/Vaping Use Currently Using 08/17/23 15:13 PHQ-9: PHQ-9 Score PHQ-9: Total score 2 08/17/23 16:10 Depression Screening Interpretation: Negative Thrive Assessment: Date of Thrive Assessment Date Thrive assessed 08/17/23 08/17/23 15:13 Currently or been in a relationship where the following occur: no concerns reported Const General: no acute distress, alert and awake Orientation/consciousness: patient oriented x3 HENMT Head: Yes normocephalic and Yes atraumatic Ears: external ears normal, TM's normal bilaterally and EAC's normal General nose exam: No nasal discharge present Face and sinus: Yes normal facial exam and Yes sinuses nontender Teeth and gingiva: dentition normal Throat: Yes posterior oropharynx normal and Yes tonsils normal (no TP congestion) Eyes Eyelids: Yes eyelids normal Conjunctivae: conjunctivae normal Pupils: Equal, round and reactive pupils present EOM: EOMs intact bilaterally Neck Neck: Yes no lymphadenopathy and Yes supple Thyroid: Thyroid normal Resp Auscultation: clear to auscultation bilaterally, no rales and no wheezes Cardio Rate: regular rate Rhythm: regular rhythm Heart sounds: no murmurs GI Palpation (GI): Soft to palpation, nontender and No hepatosplenomegaly present Auscultation: normal bowel sounds General: Yes no CVA tenderness Back/Spine/Pelvis Back: no CVA tenderness Thoracic/Lumbar Spine: thoracic and lumbar spine normal to inspection and lumbar spinal tenderness (mild) Skin Lesions: no lesions Rashes: no rashes Neuro General: patient oriented x3, moves all extremities, no focal motor deficits and CN's II-XI intact bilaterally Cranial nerves: Yes Equal, round and reactive pupils present Cognition (Neuro): normal cognition Gait exam (Neuro): Normal gait present Extrem General: Yes no clubbing, cyanosis or edema Assessment and Plan Assessment & Plan (1) Annual physical exam: Code(s): Z00.00 - Encounter for general adult medical examination without abnormal findings Plan: Check labs He recently had his screening colonoscopy done by Dr. 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 - Other disorders of plasma-protein metabolism, not elsewhere classified Plan: Patient states that he recently tried to go and donate blood but was advised that he had some abnormality on his recent labs from 10/2022 and needs to see his PCP and get medically cleared before they will allow him to donate blood again He brought in a recent serum protein electrophoresis scan done in May 2023 that showed a spike in his total protein level although there does not appear to be any monoclonal spikes on the scan His serum protein level also appears elevated on his labs at the ER done back in October 2022 Will send patient to the lab to recheck his protein levels and also have him do a serum protein electrophoresis for further evaluation (3) Polycythemia: Code(s): D75.1 - Secondary polycythemia Plan: His H/H were also noted to be elevated at 18.2 and 53.1% respectively back in October 2022 when he presented to the ER with chest pains and increasing anxiety His previous CBCs over the years all showed normal results Will have him recheck his CBC and send him as well for additional labs for further evaluation (4) Lumbar degenerative disc disease: Code(s): M51.36 - Other intervertebral disc degeneration, lumbar region Plan: Reinforced activity and weight-lifting restrictions Abdominal and pelvic CT done in 2020 and 2022 incidentally revealed (+) spondylosis of the partially visualized dorsal and lumbosacral spine and bridging osteophytes along the anterior aspect of the sacroiliac joints bilaterally (5) Obesity (BMI 30-39.9): Code(s): E66.9 - Obesity, unspecified Plan: Reinforced diet/exercise as tolerated/lose weight Plan Follow up in 3 months Orders: Orders Complete Blood Count Auto Diff 08/18/23 D75.1 - Secondary polycythemia, Z00.00 - Encounter for general adult medical examination without abnormal findings TSH reflex Free T4 08/18/23 E78.00 - Pure hypercholesterolemia, unspecified, Z00.00 - Encounter for general adult medical examination without abnormal findings UA CC w/rflx Micro + Cult 08/18/23 R30.0 - Dysuria, Z00.00 - Encounter for general adult medical examination without abnormal findings Prostate Specific Antigen Scr 08/18/23 Z00.00 - Encounter for general adult medical examination without abnormal findings Protein Electrophoresis, Serum 08/18/23 E88.09 - Other disorders of plasma-protein metabolism, not elsewhere classified Erythropoietin (EPO) 08/18/23 D75.1 - Secondary polycythemia Uric Acid 08/18/23 D75.1 - Secondary polycythemia Comprehensive [place]. Panel Fast 08/18/23 E78.00 - Pure hypercholesterolemia, unspecified, Z00.00 - Encounter for general adult medical examination without abnormal findings Lipid Panel 08/18/23 E78.00 - Pure hypercholesterolemia, unspecified, Z00.00 - Encounter for general adult medical examination without abnormal findings Vitamin D 25-OH Total 08/18/23 E55.9 - Vitamin D deficiency, unspecified, Z00.00 - Encounter for general adult medical examination without abnormal findings Vitamin B12 and Folate 08/18/23 E53.8 - Deficiency of other specified B group vitamins, Z00.00 - Encounter for general adult medical examination without abnormal findings Hemoglobin Electrophoresis 08/18/23 D75.1 - Secondary polycythemia, E88.09 - Other disorders of plasma-protein metabolism, not elsewhere classified Alkaline Phosphatase 08/18/23 D75.1 - Secondary polycythemia Coding Level of Care Code Est Pt Prev Care 40-64y(58886) Diagnoses Annual physical exam Z00.00 Hyperproteinemia E88.09 Polycythemia D75.1 Lumbar degenerative disc disease M51.36 Obesity (BMI 30-39.9) E66.9 Additional Codes BERTO-7 Assessment Billing - BERTO-7 Assessment Tool: BERTO-7 Assessment 36504 ([id number])
== END 2023-08-17 16:17 | disposition home or self-care (01) ==
PROVIDERS: PCP Internal Medicine; Visit Provider Internal Medicine
DX: Z00.00 Encounter for general adult medical examination without abnormal findings (principal); E88.09 Other disorders of plasma-protein metabolism, not elsewhere classified; D75.1 Secondary polycythemia; M51.36 Other intervertebral disc degeneration, lumbar region; E66.9 Obesity, unspecified
CPT/HCPCS: 99396

== ENCOUNTER 2023-08-18 10:34 | Outpatient (REF) | payer OTHER, SELFPAY ==
[2023-08-18 11:05] LABS: MANUAL DIFF FLAG NO
[2023-08-18 11:08] LABS: Basophils Percent Auto 0.3 % (0-2); Eosinophils Absolute Auto 0.1 X10*3/uL (0.0-0.4); Eosinophils Percent Auto 0.8 % (0-4); Hematocrit 46.2 % (42.0-52.0); Hemoglobin 15.1 g/dl (14.0-18.0); Imm Gran Abs Auto 0.03 X10*3/uL (0.00-0.03); Imm Gran Pct Auto 0.3 % (0.0-0.4); Lymphocytes Absolute Auto 1.7 X10*3/uL (1.2-4.9); Lymphocytes Percent Auto 19.4 % (20-40); Mean Corpuscular HGB Conc 32.7 g/dl (31.0-36.0); Mean Corpuscular Hemoglobin 28.2 pg (27.0-33.0); Mean Corpuscular Volume 86.2 fL (80.0-98.0); Mean Platelet Volume 8.9 fL (9.4-12.4); Monocytes Absolute Auto 0.7 X10*3/uL (0.1-1.2); Monocytes Percent Auto 7.9 % (2-11); Neutrophils Absolute Auto 6.3 x10*3/uL (2.0-8.3); Neutrophils Percent Auto 71.3 % (45-73); Platelet Count 265 X10*3/uL (160-400); Red Blood Count 5.36 X10*6/uL (4.60-5.80); Red Cell Distribution Width 14.6 % (11.0-16.0); White Blood Count 8.8 X10*3/uL (4.8-10.8)
[2023-08-18 11:39] LABS: Alanine Aminotransferase 42 U/L (0-40); Albumin Level 3.9 g/dL (3.5-5.0); Alkaline Phosphatase 88 U/L (39-117); Anion Gap 10 (12-20); Aspartate Amino Transferase 26 U/L (5-37); Bilirubin Total 0.8 mg/dL (0.0-1.0); Blood Urea Nitrogen 16 mg/dL (9-16); Calcium 9.3 mg/dL (8.4-10.2); Carbon Dioxide 27 mmol/L (22-29); Chloride 107 mmol/L (96-108); Cholesterol 138 mg/dL (<200); Estimated Glomerular Filt Rate > 60; Glucose Fasting 119 mg/dL (60-99); HDL Cholesterol 49 mg/dL (>40); LDL Cholesterol Calculated 78 mg/dL (<100); Potassium 4.3 mmol/L (3.3-5.1); Sodium 140 mmol/L (135-145); Total Protein 6.7 g/dL (6.5-8.0); Triglycerides 58 mg/dL (<150); Uric Acid 6.4 mg/dL (3.4-7.0)
[2023-08-18 11:54] LABS: TSH reflex Free T4 1.93 uIU/mL (0.32-4.0); Vitamin D 25-OH Total 28.8 ng/mL (>30)
[2023-08-18 12:07] LABS: Folate 9.2 ng/mL (> or = 4.0); Prostate Specific Antigen Scr 0.79 ng/mL (<0.05-4.0); Vitamin B12 522 pg/mL (200-900)
[2023-08-18 14:33] LABS: Appearance Urine Clear; Color Urine Yellow; Glucose Urine UA Negative (Negative); Leukocyte Esterase Urine Negative (Negative); Nitrite Urine Negative (Negative); Urine Blood Negative (Negative); Urine Ketones Negative (Negative); Urine Protein Negative (Neg-Trace)
[2023-08-20 14:24] LABS: Hematocrit 46.1 % (38.5-50.0); Hemoglobin 14.8 g/dL (13.2-17.1); MCH 27.6 pg (27.0-33.0); MCV 85.8 fL (80.0-100.0); RBC 5.37 Million/uL (4.20-5.80)
[2023-08-20 21:53] LABS: Erythropoietin (EPO) 10.2 mIU/mL (2.6-18.5)
[2023-08-21 13:38] LABS: PES - Abn Protein Band 1 0.4 g/dL (NONE DETECTED); Prot Elec - Alpha1 0.3 g/dL (0.2-0.3); Prot Elec - Alpha2 0.6 g/dL (0.5-0.9); Prot Elec - Beta 1 0.4 g/dL (0.4-0.6); Prot Elec - Beta 2 0.3 g/dL (0.2-0.5); Prot Elec - Gamma 1.1 g/dL (0.8-1.7); Prot Elec - Total Protein 6.7 g/dL (6.1-8.1)
== END 2023-08-18 10:35 | disposition home or self-care (01) ==
LOC: HO.LAB 10:34
PROVIDERS: PCP Internal Medicine; Visit Provider Internal Medicine
DX: Z00.00 Encounter for general adult medical examination without abnormal findings (principal); E78.00 Pure hypercholesterolemia, unspecified; E88.09 Other disorders of plasma-protein metabolism, not elsewhere classified; E55.9 Vitamin D deficiency, unspecified; E53.8 Deficiency of other specified B group vitamins; D75.1 Secondary polycythemia; R30.0 Dysuria
CPT/HCPCS: 36415; 80053; 80061; 81003; 82306; 82607; 82668; 82746; 83020; 84153; 84165; 84443; 84550; 85014; 85018; 85025; 85041

== ENCOUNTER → 2023-09-14 11:16 | Outpatient (BNV) | payer OTHER, SELFPAY | PROVIDERS: PCP Internal Medicine; Referring Provider Internal Medicine; Visit Provider Internal Medicine Medical Oncology | DX: D47.2 Monoclonal gammopathy (principal) | CPT/HCPCS: 99204; 99213 ==

== ENCOUNTER 2023-11-30 15:44 | Outpatient (AMB) | payer OTHER, SELFPAY ==
--- NOTE | 2023-11-30 15:51 | MHC.PC.OV ---
Vital Signs 11/30/23 15:53 Height 5 ft 11 in Weight 253 lb 6 oz BMI 35.3 BP 136/68 Blood Pressure Location Lt brachial Position Sitting Pulse 74 Pulse Source Pulse Oximeter Pulse Oximetry (%) 97 Oxygen Delivery Method Room Air Intake Visit Reasons: 3mth f/u Intake Note: Patient is here to follow up on LDDD, Obesity, Polysubstance abuse. 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 Loader: Not Required per policy Accompanied by: Self / Same As Patient Allergies penicillin V Allergy (Unknown, Verified 12/01/23 18:41) Unknown Penicillins [PENICILLINS] Allergy (Unknown, Verified 12/01/23 18:41) UNKNOWN Medication List - Last Reconciled 12/01/23 by Pete Soriano MD cholecalciferol (vitamin D3) 50 mcg PO DAILY 90 days Tobacco use date assessed: 11/30/23 Dental Screening Dental Screen Date: 08/17/23 HPI 3mth f/u HPI Details Patient comes in today for his follow up visit States that he feels okay He denies any headaches or dizziness Denies any chest pains, no SOB No nausea/vomiting, no abdominal pain No change in bowel habits noted He was referred to and seen by Dr. Fontana a few months ago for some serum protein abnormality on his labs that was noted initially when he tried to donate blood a few months ago He was sent for some additional work ups (MGUS) and he is scheduled to see Dr. 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 Back pain Surgical History Hx of colonoscopy Hx of tonsillectomy Hx of cholecystectomy Family History Brother Mental health disorder Mother Colon cancer Father HTN (hypertension) History of open heart surgery Social History Household Members: Family Housing: House Alcohol intake: current Alcohol intake frequency: holidays/special occasions only Alcohol type: beer Patient Tobacco Use Status: Current someday Tobacco user Tobacco use type: Smokeless Tobacco e-Cigarette/Vaping Use: Currently Using Substance Use Type: Crack/Cocaine and Marijuana service: No Current occupational status: employed Current occupation: [employer] Cognitive needs: No Hearing needs: No Vision needs: No Questionnaire Thrive Questionnaire Date Thrive assessed: 08/17/23 Are you currently unemployed and looking for a job?: I choose not to answer this question AUDIT C Alcohol Use Questionnaire (AUDIT-C) 2. How many drinks containing alcohol do you have on a typical day when you are drinking?: 1 or 2 3. How often do you have six or more drinks on one occasion?: Weekly Total Score: 3 BERTO-7 AMB Questionnaire BERTO-7 Date BERTO - 7 assessed: 08/17/23 Source: Developed by Drs. Alex Oropeza, Talya Hernandez, Elroy Gibbs and colleagues, with an educational conner from [employer]. Review of Systems Const Denies chills, Denies fatigue, Denies fever(s) and Denies headache(s) ENT Denies dysphagia, Denies dizziness, Denies otalgia, Denies headache(s), Denies neck pain, Denies odynophagia and Denies sore throat Card Denies chest pain, Denies irregular heart rhythm, Denies palpitations and Denies dyspnea Resp Denies chest congestion, Denies cough and Denies dyspnea GI Denies abdominal pain, Denies constipation, Denies dysphagia, Denies heartburn, Denies diarrhea, Denies nausea, Denies odynophagia and Denies vomiting Denies difficulty urinating, Denies dysuria and Denies urinary frequency Musc Reports back pain (on and off, over the lower back), Denies arthralgias and Denies neck pain Skin/Breast Denies rash Neuro Denies dizziness, Denies headache(s) and Denies paresthesias Endo Denies fatigue and Denies palpitations Physical exam (Primary Care) Vital Signs: Last Vital Signs Pulse 74 11/30/23 15:53 BP 136/68 11/30/23 15:53 Pulse Ox 97 11/30/23 15:53 Oxygen Delivery Method Room Air 11/30/23 15:53 BMI result Body Mass Index 35.3 Tobacco/Smoking Status: Tobacco use Status Tobacco use date assessed 11/30/23 11/30/23 15:58 Patient Tobacco Use Status Current someday Tobacco 11/30/23 16:01 Tobacco use type Smokeless Tobacco 11/30/23 16:01 e-Cigarette/Vaping Use Currently Using 11/30/23 16:01 Thrive Assessment: Date of Thrive Assessment Date Thrive assessed 08/17/23 11/30/23 15:58 Const General: no acute distress and alert HENMT Ears: TM's normal bilaterally and EAC's normal Throat: Yes posterior oropharynx normal and Yes tonsils normal (no TP congestion) Neck Neck: Yes no lymphadenopathy and Yes supple Thyroid: Thyroid normal Resp Auscultation: clear to auscultation bilaterally, no rales and no wheezes Cardio Rate: regular rate Rhythm: regular rhythm Heart sounds: no murmurs GI Palpation (GI): Soft to palpation and nontender Auscultation: normal bowel sounds General: Yes no CVA tenderness Back/Spine/Pelvis Back: no CVA tenderness Thoracic/Lumbar Spine: lumbar spinal tenderness (mild) Skin Rashes: no rashes Extrem General: Yes no clubbing, cyanosis or edema Office Procedures Flu Questionnaire Does the patient have a severe egg allergy?: No Does the patient have severe life threatening allergies?: No Does the patient have a fever or illness today?: No Has the patient ever had Guillain-Mansfield Syndrome?: No Has the patient ever had any past reaction to a flu shot?: No Results AMB Hemoglobin A1c AMB Hemoglobin A1c 5.5 % Last Edit by PALLAVI Phipps on 11/30/23 16:06 Immunizations Fluarix Triv [id number] (PF) 45 mcg (15 mcg x 3)/0.5 mL IM syringe Performing Provider: Pete Soriano MD [facility] Administered by: PALLAVI Butler on 11/30/23 16:22 Dose Route Admin Location Dispensed Lot Number Expiration Date ND Materials Supervisor 0.5 mL IM Left Deltoid 0.5 mL [id number] 08/25/24 54895-340-40 [id number] VIS Given Date VIS Provided VIS Publication Date 11/30/23 Single Vaccine 20 Eligibility Eligibility Date Funding Source Not [facility] Eligible 11/30/23 Private Results Reviewed Results Reviewed: Laboratory Last Values Hgb A1c (Clinic) 5.5 % (4.0-6.0) 11/30/23 15:51 Laboratory Tests 08/18/23 08/18/23 09/14/23 10:50 11:03 12:20 WBC 7.8 Hgb 16.2 Hct 47.9 Plt Count 305 Sodium 139 Potassium 4.0 Creatinine 0.93 Estimated GFR > 60 Random Glucose 120 H Fasting Glucose 119 H Hgb A1c (Clinic) Uric Acid 6.4 Calcium 9.2 AST 24 ALT 30 Lactate Dehydrogenase 158 Triglycerides 58 Cholesterol 138 LDL Cholesterol, Calc 78 HDL Cholesterol 49 PSA Screen 0.79 Vitamin B12 522 25-OH Vitamin D Total 28.8 L TSH 1.93 Ur Specific [place] 1.020 Urine Protein Negative Urine Glucose (UA) Negative Urine Blood Negative Urine Nitrite Negative Ur Leukocyte Esterase Negative 11/30/23 15:51 WBC Hgb Hct Plt Count Sodium Potassium Creatinine Estimated GFR Random Glucose Fasting Glucose Hgb A1c (Clinic) 5.5 Uric Acid Calcium AST ALT Lactate Dehydrogenase Triglycerides Cholesterol LDL Cholesterol, Calc HDL Cholesterol PSA Screen Vitamin B12 25-OH Vitamin D Total TSH Ur Specific [place] Urine Protein Urine Glucose (UA) Urine Blood Urine Nitrite Ur Leukocyte Esterase Coding Level of Care Code Est Pt Level 4 (68715) Diagnoses MGUS (monoclonal gammopathy of unknown significance) D47.2 Impaired fasting glucose R73.01 Vitamin D deficiency E55.9 Vapes non-nicotine containing substance Z72.89 Obesity (BMI 30-39.9) E66.9 Assessment & Plan Assessment & Plan (1) MGUS (monoclonal gammopathy of unknown significance): Code(s): D47.2 - Monoclonal gammopathy Category: Medical Plan: Patient was initially noted to have an abnormal SPEP on routine testing He was referred to hematology/oncology for further evaluation Works up done revealed abnormal SIEP - will need to be monitored regularly and if (+) elevated IgG and patient develops any secondary complications related to multiple myeloma, will proceed with a bone marrow exam for further evaluation Follow up with Dr. Fontana as scheduled - has a follow up appointment in 2 weeks (2) Impaired fasting glucose: Code(s): R73.01 - Impaired fasting glucose Category: Medical Plan: His FBS was elevated at 119 mg/dl back in July 2023; RBS done a month later was still elevated at 120 mg/dl His in-office HgbA1c done today is normal at 5.5% Discussed low calorie/low carb diet (3) Vitamin D deficiency: Code(s): E55.9 - Vitamin D deficiency, unspecified Category: Medical Plan: Results of his labs done a few months ago reviewed and discussed with patient - he is advised that his Vitamin D level was low on his labs Will start patient on Vitamin D3 2000 units QD (4) Vapes non-nicotine containing substance: Code(s): Z72.89 - Other problems related to lifestyle Category: Social Hx Plan: Patient is counseled on smoking cessation - advised that although he does not smoke cigarettes, smoking marijuana is not necessarily safe as anything artificial inhaled into the lungs can be considered a respiratory irritant Marijuana is also considered still a mood-altering substance even though it is legal and frequent use may increase risks of other problems potentially in the future (5) Obesity (BMI 30-39.9): Code(s): E66.9 - Obesity, unspecified Category: Medical Plan: Reinforced diet/exercise as tolerated/lose weight Plan As requested, flu vaccine given to patient today To return in July 2024 for his next annual physical examination Orders: Orders AMB Hemoglobin A1c 11/30/23 Z13.9 - Encounter for screening, unspecified Complete Blood Count Auto Diff 07/27/24 D64.9 - Anemia, unspecified, Z00.00 - Encounter for general adult medical examination without abnormal findings Comprehensive [place]. Panel Fast 07/27/24 E78.00 - Pure hypercholesterolemia, unspecified, Z00.00 - Encounter for general adult medical examination without abnormal findings Vitamin D 25-OH Total 07/27/24 E55.9 - Vitamin D deficiency, unspecified, Z00.00 - Encounter for general adult medical examination without abnormal findings Hemoglobin A1c 07/27/24 R73.01 - Impaired fasting glucose, Z00.00 - Encounter for general adult medical examination without abnormal findings Influenza [id number] Immunization 11/30/23 Z23 - Encounter for immunization Lipid Panel 07/27/24 E78.00 - Pure hypercholesterolemia, unspecified, Z00.00 - Encounter for general adult medical examination without abnormal findings TSH reflex Free T4 07/27/24 E78.00 - Pure hypercholesterolemia, unspecified, Z00.00 - Encounter for general adult medical examination without abnormal findings UA CC w/rflx Micro + Cult 07/27/24 R30.0 - Dysuria, Z00.00 - Encounter for general adult medical examination without abnormal findings Medications: New cholecalciferol (vitamin D3) 50 mcg PO DAILY 90 days 90 caps 3RF E55.9 - Vitamin D deficiency, unspecified
[2023-11-30 15:53] VITALS: BP 136/68; PULSE 74; O2SAT 97; BMI 35.3
== END 2023-11-30 16:49 | disposition home or self-care (01) ==
PROVIDERS: PCP Internal Medicine; Visit Provider Internal Medicine
DX: D47.2 Monoclonal gammopathy (principal); R73.01 Impaired fasting glucose; E66.9 Obesity, unspecified; Z68.35 Body mass index [BMI] 35.0-35.9, adult; E55.9 Vitamin D deficiency, unspecified; Z72.89 Other problems related to lifestyle

== ENCOUNTER → 2023-11-30 15:44 | Outpatient (BNVA) | payer OTHER, SELFPAY | PROVIDERS: PCP Internal Medicine; Visit Provider Internal Medicine | DX: Z23 Encounter for immunization (principal); D47.2 Monoclonal gammopathy; R73.01 Impaired fasting glucose; E55.9 Vitamin D deficiency, unspecified; E66.9 Obesity, unspecified; Z72.89 Other problems related to lifestyle | CPT/HCPCS: 83036; 90471; 90656; 99212 ==

== ENCOUNTER 2024-01-28 12:42 | Outpatient (REF) | payer OTHER, SELFPAY | END 2024-01-28 12:43 | disposition home or self-care (01) | LOC: HO.HOSX 12:42 | DX: M79.642 Pain in left hand (principal); M65.4 Radial styloid tenosynovitis [de Quervain] | CPT/HCPCS: 20550; 73130; 99202; J1100; J2003 ==

== ENCOUNTER 2024-01-28 13:14 | Outpatient (AMB) | payer OTHER, SELFPAY ==
--- NOTE | 2024-01-28 13:17 | A.OFFVIS_ITS ---
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 Patient reports he feels a sharp pain on the radial aspect of his left wrist that shoots up to his elbow and also into his index finger occasionally. He expresses current pain at the base of his thumb. Says lifting activities are difficult. At night he expresses his symptoms are worse and wake him from his sleep. He expresses mild numbness and tingling in the left hand, says it is mostly pain. He goes to the gym and says he is unable to even do a push up due to lack of full mobility and pain. 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 Patient states that over this time, his pain has gotten progressively worse, to the point where he feels it was very difficult for him to lift things or participate at the gym. The patient states that this pain is primarily located at the base of the left thumb at the level of the radial styloid, but does radiate up into the thumb and hand as well as down into the forearm. The patient does report that he does have some very occasional numbness in the left hand. But reports that he is unconcerned about this. No other acute complaints or concerns at this time. 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 Back pain Surgical History Hx of colonoscopy Hx of tonsillectomy Hx of cholecystectomy Family History Brother Mental health disorder Mother Colon cancer Father HTN (hypertension) History of open heart surgery Social History Household Members: Family Housing: House Alcohol intake: current Alcohol intake frequency: holidays/special occasions only Alcohol type: beer Patient Tobacco Use Status: Current someday Tobacco user Tobacco use type: Smokeless Tobacco e-Cigarette/Vaping Use: Currently Using Substance Use Type: Crack/Cocaine and Marijuana service: No Current occupational status: employed Current occupation: [employer] Cognitive needs: No Hearing needs: No Vision needs: No Review of Systems Const All systems reviewed & are unremarkable except as noted in HPI and below Physical Exam Vital Signs: BMI result Body Mass Index 34.4 Extrem Other: Patient is alert, oriented, and in no acute distress. Neuro: Normal sensation of the tips of all digits of the left hand at this time Vascular: Cap refill brisk Pain: Patient reports significant tenderness to palpation of the radial styloid of the left wrist No tenderness to palpation of the ulnar styloid, DRUJ, or elsewhere in the left hand or wrist ROM: Patient is able to make a closed fist and extend all digits of the left hand fully Very positive Margaret test on the left Skin: No lacerations or abrasions. General: No ecchymosis, erythema, or evidence of infection. Psych: Appears grossly normal Affect normal Attitude cooperative Office Procedures AMB Tendon Injection Tendon Injection Details: De Quervain injection, left [id number] Tendon Sheath Injection All charges added?: Procedure code (CPT) selection complete Assessment & Plan Assessment & Plan (1) De Quervain's tenosynovitis, left: Code(s): M65.4 - Radial styloid tenosynovitis [de Quervain] Category: Medical Plan 1. De Quervain tenosynovitis, left I educated the patient about this condition and the treatment options available The patient would like to proceed with steroid injection Injection #1: The risks and benefits of a steroid injection including but not limited to risk of damage to blood vessels, nerves, tendons, infection, skin bleaching, failure to improve symptoms, increased pain, and possible need for further injections or other intervention were discussed with the patient and the patient wishes to proceed with the steroid injection. Once consent was obtained, I sterilely prepped the area over the 1st dorsal compartment of the left thumb. I then injected the 1st dorsal compartment with a combination of 1 mL of dexamethasone (4mg/ml), and 1% lidocaine. The patient tolerated the procedure well with no complications and good resolution of their symptoms prior to leaving clinic. If the patient continues to have pain 6-8 weeks following this injection, they may call to schedule appointment to discuss alternative treatment options Orders: Orders XR hand LT min 3V Today M79.642 - Pain in left hand Coding Level of Care Code New Pt Level 3 (21218) Diagnoses De Quervain's tenosynovitis, left M65.4 CPT Codes Tendon Injection - Tendon Injection 1: [id number] Tendon Sheath Injection ([id number])
[2024-01-28 13:25] VITALS: BMI 34.4
== END 2024-01-28 13:53 | disposition home or self-care (01) ==
PROVIDERS: PCP Internal Medicine
DX: M65.4 Radial styloid tenosynovitis [de Quervain] (principal)
CPT/HCPCS: 20550; 99203